=== PATIENT | male | born 1975 | race Caucasian/White ===

== ENCOUNTER 2021-07-01 10:15 | Emergency (ER) | payer OTHER, SELFPAY ==
--- NOTE | 2021-07-01 10:28 | W.ED.HA ---
Documented by User: ROOSEVELT Epstein 07/01/21 11:27 HPI - Headache General: Chief Complaint: Headache Stated Complaint: Migraine Time Seen by Provider: 07/01/21 10:16 Source: patient Mode of arrival: ambulatory Limitations: no limitations History of Present Illness: Patient is a nice 45-year-old male who presents to ED today with a complaint of a migraine headache. Patient states he has suffered from migraine headaches for decades. He states he will normally get a headache once every 1 to 2 months and normally can be aborted with OTC medications however this time they have been unsuccessful. He states his headache today is identical to previous migraine headaches only worse in severity. Pain is located right retro-orbital. He is having a little nausea but no episodes of emesis which again is common with his migraines. Reports sensitivity to light/sound. He does not take any prescription abortive or prophylactic medications at home. No recent injury/trauma. Currently rating pain at a 7-8/10. Associated symptoms: Reports nausea; Deny chest pain, confusion, fever(s), lightheadedness, malaise, pre-syncope, rash, syncope or vomiting Review of Systems Const: Denies: fever(s), chills, body aches, fatigue or malaise Eyes: Reports: photophobia; Denies: change in vision, blind spots, eye discomfort, eye discharge, eye redness, floaters or seeing flashes ENMT: Denies: throat pain, odynophagia, ear or mastoid pain, nasal discharge or nasal congestion Card: Denies: chest pain, palpitations, lightheadedness, syncope or pre-syncope Resp: Denies: dyspnea GI: Reports: nausea; Denies: abdominal pain, vomiting, diarrhea or change in bowel habits Musc: Denies: neck pain, extremity pain or joint pain Skin/Breast: Denies: rash Neuro: Reports: headache(s); Denies: numbness in extremities, weakness in extremities, sensory changes, lack of coordination, difficulty walking, dizziness, vertigo, confusion or Slurred speech present FOR[facility]LY [facility] ED PFSH: Medical History (Updated 07/07/21 @ 21:43 by John Nixon MD) Migraine Physical Exam Const: COMMON NORMALS: no acute distress, average body habitus, patient oriented x3, no limitations, healthy appearing, alert and well nourished GENERAL APPEARANCE: cooperative ORIENTATION/CONSCIOUSNESS: Yes awake, Yes oriented to person, Yes oriented to place and Yes oriented to time HENMT: COMMON NORMALS: normocephalic and atraumatic HEAD & SCALP: normal to inspection, normocephalic and atraumatic FACE & SINUS: normal facial exam Eye: GENERAL EYE: appearance normal, both eyes and all related structures Neck/C-Spine: COMMON NORMALS: full ROM, no lymphadenopathy and no meningeal signs Resp: COMMON NORMALS: normal respiratory effort Cardio: COMMON NORMALS: regular rate and regular rhythm RATE: regular rate RHYTHM: regular rhythm Neuro: MAYO COMA SCALE: document GCS findings Mayo coma scale eye opening: Spontaneous Mayo coma scale verbal response: Orientated Eagle coma scale motor response: Obey commands Eagle coma scale total score: 15 COMMON NORMALS: patient oriented x3, CN's II-XII intact bilaterally, moves all extremities, no focal motor deficits, no sensory deficits noted and gait normal SENSORIUM/ORIENTATION: Yes alert, Yes oriented to person, Yes oriented to place and Yes oriented to time MENINGEAL SIGNS: Yes no meningeal signs Skin: COMMON NORMALS: no rashes or lesions noted GENERAL SKIN EXAM: no rashes or lesions noted Course Vital Signs: Vital signs: Vital Signs Temperature 97.2 F L 07/01/21 10:30 Pulse Rate 63 07/01/21 11:35 Respiratory Rate 16 07/01/21 11:35 Blood Pressure 120/81 07/01/21 11:35 Pulse Oximetry 100 07/01/21 11:35 MDM - Headache Medical Decision Making Upon re-examination patient is resting comfortably in a quiet dark room. He is currently rating his pain at a 3/10. Patient is stable for discharge at this time. Recommend follow-up with PCP if headaches become more frequent or continue to progress in severity. Return to ED precautions verbally given to patient. Discharge Plan Discharge Patient Disposition: Home Clinical Impression: Migraine Qualifiers: Migraine type: unspecified Status migrainosus presence: without status migrainosus Intractability: not intractable Qualified Code(s): G43.909 - Migraine, unspecified, not intractable, without status migrainosus Condition: Stable Discharge Orders: Discharge ED (Routine); Ordered 07/01/21 Ordered By: Jeni Jay Referrals: Boo Prince DO [Primary Care Provider] - Patient Instructions: Headache - Migraine (Adult), Migraine Headache (ED) Coding Level of Care Code ED Trimmer Tailer for Chg Fwd Exam Comprehensive Documented by User: John Nixon MD 07/07/21 21:43 HPI - Headache General: Chief Complaint: Headache Stated Complaint: Migraine Time Seen by Provider: 07/01/21 10:16 PFSH ED PFSH: Medical History (Updated 07/07/21 @ 21:43 by John Nixon MD) Migraine Physical Exam Neuro: MAYO COMA SCALE: document GCS findings Mayo coma scale total score: 15 Course Vital Signs: Vital signs: Vital Signs Temperature 97.2 F L 07/01/21 10:30 Pulse Rate 63 07/01/21 11:35 Respiratory Rate 16 07/01/21 11:35 Blood Pressure 120/81 07/01/21 11:35 Pulse Oximetry 100 07/01/21 11:35 MDM - Headache Medical Decision Making Upon re-examination patient is resting comfortably in a quiet dark room. He is currently rating his pain at a 3/10. Patient is stable for discharge at this time. Recommend follow-up with PCP if headaches become more frequent or continue to progress in severity. Return to ED precautions verbally given to patient. I have reviewed this documentation by ROOSEVELT Epstein. John Nixon MD Emergency Medicine Discharge Plan Discharge Patient Disposition: Home Clinical Impression: Migraine Qualifiers: Migraine type: unspecified Status migrainosus presence: without status migrainosus Intractability: not intractable Qualified Code(s): G43.909 - Migraine, unspecified, not intractable, without status migrainosus Condition: Stable Discharge Orders: Discharge ED (Routine); Ordered 07/01/21 Ordered By: Jeni Jay Referrals: Boo Prince DO [Primary Care Provider] - Patient Instructions: Headache - Migraine (Adult), Migraine Headache (ED) Coding Level of Care Code ED Trimmer Tailer for Chg Fwd Exam Comprehensive
[2021-07-01 10:30] VITALS: BP 146/106; PULSE 64; RESP 16; TEMP 36.2; O2SAT 100; BMI 24.3
[2021-07-01] MEDS: diphenhydrAMINE 50 mg/mL SDV 1mL IVP (10:35)
[2021-07-01] MEDS: ketorolac 60 mg/2 mL INJ 30 MG IVP (10:35)
[2021-07-01] MEDS: sodium chloride 0.9% 1,000 ML 999 ML IV (10:36)
[2021-07-01] MEDS: ondansetron 2 mg/ML SDV 2 mL 4 MG IVP (10:36)
[2021-07-01 10:42] VITALS: BP 146/106; PULSE 70; RESP 16; O2SAT 99
[2021-07-01] MEDS: dexamethasone 4 mg/mL INJ 6 MG IVP (11:30)
[2021-07-01 11:35] VITALS: BP 120/81; PULSE 63; RESP 16; O2SAT 100
== END 2021-07-01 11:38 | disposition home or self-care (01) ==
PROVIDERS: Emergency Provider Physician Assistant; PCP Family Medicine
DX: G43.909 Migraine, unspecified, not intractable, without status migrainosus (principal)
CPT/HCPCS: 96361; 96374; 96375; 99284; J1100; J1200; J1885; J2405; J7030

== ENCOUNTER 2021-08-05 04:10 | Emergency (ER) | payer OTHER, SELFPAY ==
[2021-08-05 04:15] VITALS: BP 139/86; PULSE 71; TEMP 36.6; O2SAT 997
[2021-08-05 04:18] VITALS: BP 139/86; PULSE 71; RESP 14; TEMP 36.6; O2SAT 97; BMI 24.3
--- NOTE | 2021-08-05 04:25 | XRR_ITS ---
PROCEDURE INFORMATION: Exam: XR Chest Exam date and time: 08/05/2021 4:38 AM Age: 45 years old Clinical indication: Cough TECHNIQUE: Imaging protocol: XR of the chest. Views: 2 views. COMPARISON: CR Chest 1 [place] [id number] 04/22/2017 4:35 PM FINDINGS: Lungs: There is no evidence of focal pulmonary consolidation. Pleural spaces: No pleural effusion or pneumothorax. Heart/Mediastinum: Normal in size. Bones/joints: No acute fracture is identified. XR/XR chest 2V* [id number] IMPRESSION: No acute findings.
--- NOTE | 2021-08-05 04:26 | ED_ITS ---
HPI - URI/Sore Throat General: Chief Complaint: Upper Respiratory Infection Stated Complaint: n/vision problems Time Seen by Provider: 08/05/21 04:14 Source: patient Mode of arrival: ambulatory Limitations: no limitations History of Present Illness: 45-year-old male states over the last 3 weeks he states he has been having a cough nasal congestion and feeling very congested in his head. He has been having some mild headaches with some sinus pain. He states that he cannot get rid of the head congestion and affecting his work. He denies any fever he states he been taken NyQuil with no improvement. States the cough has been dry in nature he states he had some blurred vision here his vision is normal has normal visual acuity. Associated symptoms: Reports nasal congestion; Deny abdominal pain, chest pain, diarrhea, headache(s), nausea or vomiting Review of Systems Const: Reports: body aches Eyes: Denies: blurry vision or eye discomfort ENMT: Reports: nasal congestion Card: Denies: chest pain Resp: Reports: non-productive cough GI: Denies: abdominal pain, nausea, vomiting or diarrhea : Denies: dysuria Musc: Denies: neck pain or back pain Skin/Breast: Denies: rash Neuro: Denies: headache(s) Psych: Denies: depression Cruz/Lymph: Denies: easy bruising All/Imm: Denies: urticaria PFSH ED PFSH: Medical History Migraine Social History (Updated 08/05/21 @ 04:28 by Cecile Baker MD) Substance/Drug Use: never Physical Exam Const: COMMON NORMALS: no acute distress, patient oriented x3 and healthy appearing HENMT: COMMON NORMALS: normocephalic and atraumatic HEAD & SCALP: normocephalic and atraumatic Eye: COMMON NORMALS: Equal, round and reactive pupils present and EOMs intact bilaterally VISUAL ACUITY: Yes acuity normal VISUAL TOVAR: No peripheral vision loss PUPIL: Yes Equal, round and reactive pupils present Neck/C-Spine: COMMON NORMALS: full ROM and supple Chest: COMMONS NORMALS: normal inspection of the chest and normal palpation of entire chest wall Resp: COMMON NORMALS: normal respiratory effort, No retractions, No use of accessory muscles and clear to auscultation bilaterally AUSCULTATION: clear to auscultation bilaterally Cardio: COMMON NORMALS: regular rate, regular rhythm and No murmurs present (Cardio) RATE: regular rate RHYTHM: regular rhythm GI: COMMON NORMALS: Normal to inspection, nondistended, normoactive bowel sounds present, Soft to palpation, non-tender and no masses PALPATION: Yes Soft to palpation Extremity: COMMON NORMALS: normal to inspection and full ROM Neuro: COMMON NORMALS: patient oriented x3, moves all extremities and no focal motor deficits CRANIAL NERVES: Yes CN normal except as noted SPEECH: speech normal MOTOR EXAM: 5/5 motor strength present throughout Psych: COMMON NORMALS: mental status grossly normal, Normal thought process present and cooperative THOUGHT PROCESS: Normal thought process present Skin: COMMON NORMALS: no rashes or lesions noted and no wounds GENERAL SKIN EXAM: no rashes or lesions noted Course Vital Signs: Vital signs: Vital Signs Temperature 97.8 F 08/05/21 04:18 Pulse Rate 71 08/05/21 04:18 Respiratory Rate 14 08/05/21 04:18 Blood Pressure 139/86 08/05/21 04:18 Pulse Oximetry 97 08/05/21 04:18 MDM - URI/Sore Throat Medical Decision Making Patient presents with cough congestion likely upper respiratory infection he has had it for 3 weeks we will give him a dose of steroids prescribed Keflex he is stable for discharge he is to follow-up with PCP and return if worsening he understands agrees to plan. Discharge Plan Discharge Patient Disposition: Home Clinical Impression: Upper respiratory infection Prescriptions: New cephalexin 500 mg capsule 500 mg PO TID 7 Days Qty: 21 0RF Discharge Orders: Discharge ED (Routine); Ordered 08/05/21 Ordered By: Cecile Baker Referrals: Boo Prince DO [Primary Care Provider] - 1-3 days Discharge Diet: Advance as tolerated Discharge Activity: Resume usual activity Patient Instructions: Upper Respiratory Infection (ED) Stand Alone Forms: Work/School Release Coding Level of Care Code ED Conveyor Feeder Offbearer for Chg Fwd Exam Comprehensive
[2021-08-05] MEDS: dexamethasone 10 mg/mL INJ IM (04:52)
== END 2021-08-05 04:51 | disposition home or self-care (01) ==
PROVIDERS: Emergency Provider Emergency Medicine; PCP Family Medicine
DX: J06.9 Acute upper respiratory infection, unspecified (principal)
CPT/HCPCS: 71046; 96372; 99283; J1100

== ENCOUNTER → 2021-09-04 14:41 | Outpatient (BNVA) | payer OTHER, SELFPAY | PROVIDERS: PCP Family Medicine; Visit Provider Family Medicine | DX: G43.909 Migraine, unspecified, not intractable, without status migrainosus (principal); E34.9 Endocrine disorder, unspecified; E03.9 Hypothyroidism, unspecified; E05.90 Thyrotoxicosis, unspecified without thyrotoxic crisis or storm | CPT/HCPCS: 84443 ==

== ENCOUNTER → 2022-03-24 12:52 | Outpatient (BNVA) | payer OTHER, SELFPAY | PROVIDERS: PCP Family Medicine; Visit Provider Family Medicine | DX: E29.1 Testicular hypofunction (principal); E03.9 Hypothyroidism, unspecified; F32.A Depression, unspecified; Z13.6 Encounter for screening for cardiovascular disorders | CPT/HCPCS: 80053; 80061; 82040; 84270; 84403; 84443; 85025 ==

== ENCOUNTER → 2022-08-07 08:34 | Outpatient (BNVA) | payer OTHER, SELFPAY | PROVIDERS: PCP Family Medicine; Visit Provider Family Medicine | DX: E03.9 Hypothyroidism, unspecified (principal); E29.1 Testicular hypofunction | CPT/HCPCS: 80053; 82040; 84270; 84403; 84439; 84443 ==

== ENCOUNTER → 2022-12-11 15:25 | Outpatient (BNVA) | payer OTHER, SELFPAY | PROVIDERS: PCP Family Medicine; Visit Provider Family Medicine | DX: E03.9 Hypothyroidism, unspecified (principal) | CPT/HCPCS: 80053; 84403; 84439; 84443; 85025 ==

== ENCOUNTER → 2023-04-06 12:02 | Outpatient (BNVA) | payer OTHER, SELFPAY | PROVIDERS: PCP Family Medicine; Visit Provider Family Medicine | DX: E03.9 Hypothyroidism, unspecified (principal); E29.1 Testicular hypofunction | CPT/HCPCS: 80053; 84403; 84439; 84443 ==

== ENCOUNTER → 2023-10-01 14:34 | Outpatient (BNVA) | payer OTHER, SELFPAY | PROVIDERS: PCP Family Medicine; Visit Provider Family Medicine | DX: E03.9 Hypothyroidism, unspecified (principal); E29.1 Testicular hypofunction | CPT/HCPCS: 80053; 84403; 84439; 84443 ==

== ENCOUNTER → 2023-12-24 15:20 | Outpatient (BNVA) | payer OTHER, SELFPAY | PROVIDERS: PCP Family Medicine; Visit Provider Family Medicine | DX: E03.9 Hypothyroidism, unspecified (principal) | CPT/HCPCS: 84443 ==

== ENCOUNTER → 2023-12-30 15:10 | Outpatient (BNVA) | payer OTHER, SELFPAY | PROVIDERS: PCP Family Medicine; Visit Provider Family Medicine | DX: E03.9 Hypothyroidism, unspecified (principal) | CPT/HCPCS: 84443 ==

== ENCOUNTER → 2024-01-20 15:24 | Outpatient (BNVA) | payer OTHER, SELFPAY | PROVIDERS: PCP Family Medicine; Visit Provider Family Medicine | DX: E03.9 Hypothyroidism, unspecified (principal) | CPT/HCPCS: 84443; 84480 ==

== ENCOUNTER 2024-04-03 06:12 | Observation (INO) | payer OTHER, SELFPAY ==
[2024-04-03] VITALS (10 sets, daily range): BP systolic 100–141; BP diastolic 67–88; PULSE 49–81; RESP 15–18; TEMP 36.4–36.7; O2SAT 96–100; BMI 25.8
--- NOTE | 2024-04-03 06:27 | XRR_ITS ---
PROCEDURE INFORMATION: Exam: XR Chest Exam date and time: 04/03/2024 6:39 AM Age: 48 years old Clinical indication: Other: Epigastric pain; Additional info: Abd pain TECHNIQUE: Imaging protocol: Radiologic exam of the chest. Views: 1 view. COMPARISON: CR XR chest 2V* [id number] 08/05/2021 4:38 AM FINDINGS: Lungs: Unremarkable. No consolidation. Pleural spaces: Unremarkable. No pleural effusion. No pneumothorax. Heart/Mediastinum: Unremarkable. No cardiomegaly. Bones/joints: Unremarkable. XR/XR chest 1V portable [id number] IMPRESSION: No acute findings.
--- NOTE | 2024-04-03 06:47 | ED_ITS ---
HPI - Abdominal Pain 2 General: Chief Complaint: Abdominal Pain Stated Complaint: abd pain Time Seen by Provider: 04/03/24 06:26 History of Present Illness: 48-year-old male presents to the emergen cy room with complaints of epigastric pain began around 3 AM this morning. He has had this off and on for the last month. Does not notice anything that precipitates or relieves it. He has not noticed any association with eating or not eating or eating a particular food. No dysuria urgency or frequency. He has not had any dark tarry stools or hematochezia. No associated vomiting. Localizes the pain mostly to the epigastric area at times it will go into the right upper quadrant and he describes as being under his ribs. No previous abdominal surgeries no fevers. This particular episode is more intense than what he had in the past. Drinks alcohol occasionally has not had any in the last week. Associated Symptoms: Denies chills, coffee ground emesis, dysuria, fever(s), hematochezia, hematemesis, melena, nausea and vomiting Related Data Home Medications Medication Instructions Recorded Confirmed buspirone 15 mg tablet 15 mg PO TID 08/07/22 04/03/24 clonazepam 0.5 mg tablet 0.5 mg PO TID 08/07/22 04/03/24 escitalopram oxalate 20 mg tablet 20 mg PO DAILY 04/03/24 04/03/24 lurasidone 80 mg tablet 80 mg PO QPM 04/03/24 04/03/24 testosterone cypionate 200 mg/mL 0.375 mg SUBCUT Q14D 04/03/24 04/03/24 intramuscular oil Previous Rx's Medication Instructions Recorded syringe with needle 3 mL 23 x 1 #100 ea 01/14/23 (BD Luer-Vadim Syringe) albuterol sulfate 90 mcg/actuation 2 inh inhalation Q6H PRN shortness 04/25/23 aerosol inhaler of breath or wheezing #6.7 grams levothyroxine 125 mcg tablet 125 mcg PO DAILY #60 tabs 02/01/24 Allergies Allergy/AdvReac Type Severity Reaction Status Date / Time No Known Allergies Allergy Verified 04/03/24 06:31 Review of Systems 2 Const: Denies: fever(s) or chills Card: Denies: chest pain Resp: Denies: dyspnea GI: Reports: abdominal pain; Denies: nausea, vomiting, hematemesis, coffee ground emesis, hematochezia or melena : Denies: dysuria, urinary frequency or urinary urgency Musc: Denies: neck pain or back pain Skin/Breast: Denies: rash PFSH ED 2 PFSH: Medical History Generalized anxiety disorder Moderate major depression Anxiety Testosterone deficiency in male Hypothyroidism Migraine Surgical History History of thyroidectomy, total History of sinus surgery Family History Grandmother Cancer Paternal-colon Grandfather Cancer Paternal-colon Other Dementia Diabetes Hypertension Lung disease Psychiatric illness Denies family history of CAD (coronary artery disease) Clotting disorder Hyperlipidemia Chronic kidney disease (CKD) Anesthesia complication Bleeding disorder Stroke Social History Smoking and tobacco/nicotine status: never used tobacco/nicotine Alcohol intake: current Alcohol intake frequency: few times a month Substance/Drug Use: never Lives independently: Yes Marital status: Number of children: 2 Current occupational status: employed 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 [employer] Special dianna needs: No Agree to transfusion: Yes Physical Exam 2 Const: GENERAL APPEARANCE: cooperative ORIENTATION/CONSCIOUSNESS: Yes awake, Yes oriented to person, Yes oriented to place and Yes oriented to time HENMT: COMMON NORMALS: normocephalic, atraumatic and hearing grossly normal bilaterally HEAD & SCALP: normocephalic and atraumatic Resp: COMMON NORMALS: normal respiratory effort, No retractions, No use of accessory muscles and clear to auscultation bilaterally AUSCULTATION: clear to auscultation bilaterally Cardio: COMMON NORMALS: regular rate, regular rhythm and No murmurs present (Cardio) RATE: regular rate RHYTHM: regular rhythm GI: COMMON NORMALS: No hepatosplenomegaly present AUSCULTATION: Yes normoactive bowel sounds PALPATION: Yes Tenderness to palpation present (GI) (Epigastrium), No Guarding due to palpation present (GI) and Yes No hepatosplenomegaly present Extremity: COMMON NORMALS: normal to inspection, capillary refill normal, no clubbing, cyanosis or edema, no calf tenderness and no pedal edema Neuro: SENSORIUM/ORIENTATION: Yes oriented to person, Yes oriented to place and Yes oriented to time Skin: COMMON NORMALS: no rashes or lesions noted GENERAL SKIN EXAM: no rashes or lesions noted Course 2 Vital Signs: Vital signs: Vital Signs Temperature 97.9 F 04/03/24 06:27 Pulse Rate 58 L 04/03/24 11:30 Respiratory Rate 16 04/03/24 06:27 Blood Pressure 111/68 04/03/24 11:30 Pulse Oximetry 98 04/03/24 11:30 Oxygen Delivery Me thod Room Air 04/03/24 08:00 MDM - Abdominal Pain Medical Decision Making History and exam patient is having biliary colic imaging confirmed acute Ness cystitis. No dilation of the common bile duct white count elevated alk phos elevated is transaminases and bilirubin are normal lipase normal. Hang Mathew discussed Dr. Kearns will admit for acute cholecystitis. Medical Records I reviewed the patient's medical records. Lab Data I reviewed the patient's lab results. 04/03/24 06:40 04/03/24 06:40 Labs/Radiology: Radiology Impressions Chest X-Ray 04/03/24 06:27 IMPRESSION: No acute findings. Gallbladder Ultrasound 04/03/24 07:44 IMPRESSION: 1. Findings of acute cholecystitis. 2. There are several stones within the gallbladder and some of the stones are entrapped in the gallbladder neck. Recommend surgical evaluation. If there are entrapped stones at the gallbladder neck patient is at risk for developing fistulous communication with the duodenum. 3. No intrahepatic ductal bile duct dilatation. Laboratory Results WBC 11.60 10^3/uL (3.29-11.43) H 04/03/24 06:40 RBC 5.09 10^6/uL (3.85-5.65) 04/03/24 06:40 Hgb 15.10 g/dL (11.27-16.99) 04/03/24 06:40 Hct 45.7 % (37-53) 04/03/24 06:40 MCV 89.8 fl (82-101) 04/03/24 06:40 MCH 29.7 pg (27-33) 04/03/24 06:40 MCHC 33.0 g/dL (30-55) 04/03/24 06:40 RDW 13.3 % (12.1-15.1) 04/03/24 06:40 Plt Count 473 10^3/cmm (157-399) H 04/03/24 06:40 MPV 9.0 fL (7.4-10.4) 04/03/24 06:40 Neut % (Auto) 51.4 % 04/03/24 06:40 Lymph % (Auto) 38.9 % 04/03/24 06:40 Lea % (Auto) 6.5 % 04/03/24 06:40 Eos % (Auto) 2.1 % 04/03/24 06:40 Baso % (Auto) 0.8 % 04/03/24 06:40 Neut # (Auto) 5.98 10^3/uL (1.8-7.7) 04/03/24 06:40 Lymph # (Auto) 4.5 10^3/uL (0.8-4.8) 04/03/24 06:40 Lea # (Auto) 0.8 10^3/uL (0.2-0.9) 04/03/24 06:40 Eos # (Auto) 0.2 10^3/uL (0.0-0.8) 04/03/24 06:40 Baso # (Auto) 0.1 10^3/uL (0.0-0.1) 04/03/24 06:40 Nucleated RBC % (auto) 0 % 04/03/24 06:40 Nucleated RBCs # 0.0 /100WBC 04/03/24 06:40 Sodium 139 mmol/L (136-145) 04/03/24 06:40 Potassium 3.7 mmol/L (3.5-5.1) 04/03/24 06:40 Chloride 100 mmol/L (98-107) 04/03/24 06:40 Carbon Dioxide 27 mmol/L (22-29) 04/03/24 06:40 Anion Gap 15.7 (5-19) 04/03/24 06:40 BUN 9 mg/dL (6-20) 04/03/24 06:40 Creatinine 1.1 mg/dL (0.7-1.2) 04/03/24 06:40 GFR Calculation 72.1 mL/min (90-130) L 04/03/24 06:40 Glucose 116 mg/dL (65-115) H 04/03/24 06:40 Calculated Osmolality 288 mOsm/kg (285-295) 04/03/24 06:40 Calcium 9.6 mg/dL (8.5-10.5) 04/03/24 06:40 Total Bilirubin 0.2 mg/dL (0.15-1.2) 04/03/24 06:40 AST 19 U/L (0-40) 04/03/24 06:40 ALT 35 U/L (0-41) 04/03/24 06:40 Alkaline Phosphatase 139 U/L (40-130) H 04/03/24 06:40 Total Protein 7.9 g/dL (6.6-8.7) 04/03/24 06:40 Albumin 4.7 g/dL (3.5-5.2) 04/03/24 06:40 Globulin 3.2 g/dL (1.3-4.6) 04/03/24 06:40 Lipase 54 U/L (13-60) 04/03/24 06:40 Urine Color Yellow (Yellow) 04/03/24 09:15 Urine Appearance Clear (CLEAR) 04/03/24 09:15 Urine pH 6.5 (5-7) 04/03/24 09:15 Ur Specific Isabel 1.012 (1.005-1.030) 04/03/24 09:15 Urine Protein Negative (Negative) 04/03/24 09:15 Urine Glucose (UA) Negative (Normal) 04/03/24 09:15 Urine Ketones Negative (Negative) 04/03/24 09:15 Urine Blood Negative (Negative) 04/03/24 09:15 Urine Nitrate Negative (Negative) 04/03/24 09:15 Urine Bilirubin Negative (Negative) 04/03/24 09:15 Urine Urobilinogen 1.0 mg/dL (Negative) 04/03/24 09:15 Ur Leukocyte Esterase Negative (Negative) 04/03/24 09:15 Urine RBC 0-2 /hpf (0-2) 04/03/24 09:15 Urine WBC 0-5 /hpf (0-5) 04/03/24 09:15 Ur Squamous Epith Cells 0-5 /hpf (0-5) 04/03/24 09:15 Amorphous Sediment Not Reportable 04/03/24 09:15 Urine Bacteria None seen /hpf (NONE) 04/03/24 09:15 Hyaline Casts 0-4 /lpf H 04/03/24 09:15 All radiology interpretation(s) finalized by discharge Discharge Plan Discharge Condition: Stable Prescriptions: No Action albuterol sulfate 90 mcg/actuation HFA aerosol inhaler 2 inh inhalation Q6H PRN (Reason: shortness of breath or wheezing) Qty: 6.7 0RF clonazepam 0.5 mg tablet 0.5 mg PO TID buspirone 15 mg tablet 15 mg PO TID (DME) BD Luer-Vadim Syringe 3 mL 23 x 1 syringe See Rx Instructions .ROUTE .COMPLEX Qty: 100 0RF Dose Instruction: USE DIRECTED FOR TESTOSTERONE INJECTION Rx Instructions: USE DIRECTED FOR TESTOSTERONE INJECTION levothyroxine 125 mcg tablet 125 mcg PO DAILY Qty: 60 1RF testosterone cypionate 200 mg/mL oil 0.375 mg SUBCUT Q14D escitalopram oxalate 20 mg tablet 20 mg PO DAILY lurasidone 80 mg tablet 80 mg PO QPM Referrals: Taz Williamson MD [Primary Care Provider] - Coding Level of Care Code ED Automatic Corn Grinder Operator for Alysong Melissa
[2024-04-03 07:02] LABS: Basophils # 0.1 10^3/uL (0.0-0.1); Basophils % 0.8 %; Eosinophils # 0.2 10^3/uL (0.0-0.8); Eosinophils % 2.1 %; Hematocrit 45.7 % (37-53); Lymphocytes # 4.5 10^3/uL (0.8-4.8); Lymphocytes % 38.9 %; Mean Corpuscular Hemoglobin 29.7 pg (27-33); Mean Corpuscular Volume 89.8 fl (82-101); Monocytes # 0.8 10^3/uL (0.2-0.9); Monocytes % 6.5 %; Neutrophils # 5.98 10^3/uL (1.8-7.7); Neutrophils % 51.4 %; Nucleated Red Blood Cells % 0 %; Platelet Count 473 10^3/cmm (157-399); Red Blood Count 5.09 10^6/uL (3.85-5.65); Red Cell Distribution Width 13.3 % (12.1-15.1)
[2024-04-03] MEDS: lidocaine 2% viscous 15 ML, aluminum-mag hydrox-simethicon 30 ML, sucralfate oral liq 1 GM PO (07:06)
--- NOTE | 2024-04-03 07:14 | ECG_ITS ---
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 Measurements Intervals [place] Rate: 50 P: 60 AR: 171 QRS: 59 QRSD: 85 T: 48 QT: 430 QTc: 392 Interpretive Statements SINUS BRADYCARDIA No previous ECG available for comparison Electronically Signed On 04-03-2024 20:05:40 ENGINEERING CLERK by Benjamin Toth M.D. [email or web address]
[2024-04-03 07:15] LABS: Alanine Aminotransferase 35 U/L (0-41); Albumin Level 4.7 g/dL (3.5-5.2); Alkaline Phosphatase 139 U/L (40-130); Anion Gap 15.7 (5-19); Aspartate Amino Transferase 19 U/L (0-40); Blood Urea Nitrogen 9 mg/dL (6-20); Calcium 9.6 mg/dL (8.5-10.5); Carbon Dioxide 27 mmol/L (22-29); Chloride 100 mmol/L (98-107); Creatinine Clr Calc Pharmacy 79.8881; Globulin 3.2 g/dL (1.3-4.6); Glomerular Filtration Rate 72.1 mL/min (90-130); Glucose 116 mg/dL (65-115); Lipase 54 U/L (13-60); Osmolality Calculated 288 mOsm/kg (285-295); Potassium 3.7 mmol/L (3.5-5.1); Sodium 139 mmol/L (136-145); Total Bilirubin 0.2 mg/dL (0.15-1.2); Total Protein 7.9 g/dL (6.6-8.7)
--- NOTE | 2024-04-03 07:44 | US_ITS ---
WS: [id number] RIGHT UPPER QUADRANT ULTRASOUND HISTORY: abd pain COMPARISON: CT 02/26/2014 Liver: 13.4 cm in length. Normal size liver and echogenicity. No bile duct dilatation or mass. Portal Vein: Normal hepatopetal flow with monophasic waveform. Gallbladder: Abnormal gallbladder. Mildly hydropic gallbladder with stones and sludge. Mild wall thic kening with a small amount of pericholecystic fluid. There are several stones near the gallbladder ne ck. Several of the stones. Be entrapped at the gallbladder neck. CBD: 0.4 cm Pancreas: Normal size and echogenicity. Right kidney: 9.2 cm in length. Normal size and echogenicity. No hydronephrosis or mass. Aorta and IVC: Unremarkable abdominal aorta and IVC. No ascites. US/US gall bladder [id number] IMPRESSION: 1. Findings of acute cholecystitis. 2. There are several stones within the gallbladder and some of the stones are entrapped in the gallbladder neck. Recommend surgical evaluation. If there are entrapped stones at the gallbladder neck patient is at risk for developing fist ulous communication with the duodenum. 3. No intrahepatic ductal bile duct dilatation.
[2024-04-03 09:28] LABS: Bacteria Urine None Seen /hpf; Hyaline Casts Urine 0-4 /lpf; RBC Urine 0-2 /hpf (0-2); Squamous Epithelial Cell Urine 0-5 /hpf (0-5); WBC Urine 0-5 /hpf (0-5)
[2024-04-03 09:32] LABS: Add Urine Microscopic? YES; Bilirubin Urine Negative (Negative); Blood Urine Negative (Negative); Glucose Urine UA Negative (Normal); Ketones Urine Negative (Negative); Leukocyte Esterase Urine Negative (Negative); Nitrate Urine Negative (Negative); Protein Urine Negative (Negative); Specific Gravity, Urine 1.012 (1.005-1.030); Urine Appearance Clear (CLEAR); Urine Color Yellow (Yellow); pH Urine 6.5 (5-7)
[2024-04-03] MEDS: piperacillin-tazobactam 3.375 GM in sodium chloride 0.9% (plus) 50 ML IV ×2 (11:00→21:06)
--- NOTE | 2024-04-03 13:36 | PC.NURSE ---
This nurse took report from DEEPAK Farias in ER at [id number].
--- NOTE | 2024-04-03 16:04 | P.HP_ITS ---
Providers/Chief Complaint 2 Admitting Physician: Lamont Kearns DO Primary Care Provider: Taz Williamson MD Chief Complaint: abd pain History of Present Illness Mariya Jacobs is a 48 year old male to the hospital as a 2-month history of right upper quadrant pain and nausea. The pain is sharp and radiates to his back. Eating makes the pain worse. Nothing seems to make the pain better. He denies any hematochezia and/or melena. An ultrasound of the gallbladder shows acute calculous cholecystitis Review of Systems 2 General: Reports: 10 or more systems reviewed and unremarkable except in HPI and below Medications/Allergies Home Medications Medication Instructions Recorded Confirmed Last Taken Type buspirone 15 mg tablet 15 mg PO TID 08/07/22 04/03/24 Unknown History clonazepam 0.5 mg tablet 0.5 mg PO TID 08/07/22 04/03/24 Unknown History syringe with needle 3 mL 23 x 1 #100 ea 01/14/23 04/03/24 Unknown Rx (BD Luer-Vadim Syringe) albuterol sulfate 90 mcg/actuation 2 inh inhalation Q6H PRN shortness 04/25/23 04/03/24 Unknown Rx aerosol inhaler of breath or wheezing #6.7 grams levothyroxine 125 mcg tablet 125 mcg PO DAILY #60 tabs 02/01/24 04/03/24 Unknown Rx escitalopram oxalate 20 mg tablet 20 mg PO DAILY 04/03/24 04/03/24 Unknown History lurasidone 80 mg tablet 80 mg PO QPM 04/03/24 04/03/24 Unknown History testosterone cypionate 200 mg/mL 0.375 mg SUBCUT Q14D 04/03/24 04/03/24 Unknown History intramuscular oil Allergies Allergy/AdvReac Type Severity Reaction Status Date / Time No Known Allergies Allergy Verified 04/03/24 06:31 PFSH Acute 2 PFSH: Medical History Generalized anxiety disorder Moderate major depression Anxiety Testosterone deficiency in male Hypothyroidism Migraine Surgical History History of thyroidectomy, total History of sinus surgery Family History Grandmother Cancer Paternal-colon Grandfather Cancer Paternal-colon Other Dementia Diabetes Hypertension Lung disease Psychiatric illness Denies family history of CAD (coronary artery disease) Clotting disorder Hyperlipidemia Chronic kidney disease (CKD) Anesthesia complication Bleeding disorder Stroke Social History Smoking and tobacco/nicotine status: never used tobacco/nicotine Alcohol intake: current Alcohol intake frequency: few times a month Substance/Drug Use: never Lives independently: Yes Marital status: Number of children: 2 Current occupational status: employed 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 Ears : Pinnae and external canal are normal. Hearing is normal. Eyes : PERRLA, Sclera and injection are normal. No conjunctival discharge. Nose : Mucous membranes are without erythema. Throat : buccal mucosa is normal, gums are without significant recession or hypertrophy. Lungs : Equal chest rise bilaterally, no use of accessory muscles, trachea is midline. Cor : Rate and rhythm are normal. Abdomen : Soft, ND, right upper quadrant tenderness, negative Schmidt's, no g/r/m Extremities : No edema, no cyanosis or clubbing, dorsalis pedis pulses are present bilaterally, non-tender to palpation of calves. Upper extremities are normal bilaterally. Back : non-tender to palpation, no CVA tenderness. Neuro : CN II - XII intact, Upper and lower extremities have equal and full strength Data 04/03/24 06:40 04/03/24 06:40 A&P Assessment and plan (1) Acute calculous cholecystitis: Plan Laparoscopic cholecystectomy The risks and benefits of the procedure, including but not limited to, bleeding, infection, scar, numbness, pain, damage to surrounding structures, damage to common bile duct requiring additional surgery, conversion to an open procedure, were explained to the patient. He is understanding of the risks and wishes to proceed. See orders Attestations 2 Medical Necessity Statement*: Patient require at least 1 night in the hospital for IV antibiotics and preparation for cholecystectomy tomorrow Coding Level of Care Code 06155 Diagnoses Acute calculous cholecystitis K80.00
[2024-04-04] VITALS (11 sets, daily range): BP systolic 99–149; BP diastolic 47–88; PULSE 63–100; RESP 12–24; TEMP 36.2–36.6; O2SAT 95–100
[2024-04-04] MEDS: piperacillin-tazobactam 3.375 GM in sodium chloride 0.9% (plus) 50 ML IV ×2 (04:46→11:18)
[2024-04-04] MEDS: sodium chloride 0.9% 1,000 ML 30 ML IV (09:14)
--- NOTE | 2024-04-04 10:04 | P.PN_ITS ---
Vitals/I&O/Wt Last Vital Signs Temp 97.2 F L 04/04/24 08:59 Pulse 68 04/04/24 08:59 Resp 17 04/04/24 08:59 BP 122/74 04/04/24 08:59 Pulse Ox 100 04/04/24 08:59 O2 Del Method Room Air 04/04/24 08:59 04/03/24 04/04/24 04/04/24 22:59 06:59 14:59 Intake Total 720 / 770 50 / 820 Balance 720 / 770 50 / 820 Weight last 48 hrs Weight 156 lb Weight 160 lb Weight 160 lb Data 04/03/24 06:40 04/03/24 06:40 A&P Assessment and plan (1) Acute calculous cholecystitis: Plan Laparoscopic cholecystectomy The risks and benefits of the procedure, including but not limited to, bleeding, infection, scar, numbness, pain, damage to surrounding structures, damage to common bile duct requiring additional surgery, conversion to an open procedure, were explained to the patient. He is understanding of the risks and wishes to proceed. See orders Attestations 2 Medical Necessity Statement*: Patient may go home after the procedure. If significant infection or complication, he will need to stay at least 1 further night Coding Level of Care Code Acute Code for [facility] Fwd Diagnoses Acute calculous cholecystitis K80.00
--- NOTE | 2024-04-04 10:16 | PC.CHAP ---
Pastoral Care Encounter/Spiritual Assessment Type of Contact [] Declined wildlife biostation research ecologist visit [] Patient/Family/Request visit [] Outpatient visit [] Follow-up visit [] Physician referral [] Code/Alert [] Routine visit [] Staff referral [] Actively dying [] Patient sleeping [] Family support [] [x] Out of room [] Palliative care [] [] Receiving care in room [] Pre-surgical visit [] Trauma [] Long length of stay [] ICU visit [] Other: Relational/Emotional Strength [] Patient feels connected with others/family/visitors/staff [] Distress [] Loneliness/isolation [] Abandonment Spirituality of Patient [] Person of Patricia [] Attends Zoroastrian of their Patricia [] Believes in Prayer [] Reads Bible or Sikh materials [] There are Spiritual issues to be addressed Deputy Clerk Interventions [] Prayer [] Active listening [] Non-anxious presence [] Spiritual/emotional support [] Crisis/trauma care [] Spiritual counseling [] Bereavement support [] Provided bereavement packet [] Provided Bible/devotional materials [] Provided toy/stuffed animal, coloring book to patient or family member [] Provided Communion [] Anointing/[place] [] Salvation [] Completed spiritual assessment [] Other: Impact on Illness or Injury [] Angry [] Fearful [] Anxious [] Often cries [] Exhaustion [] Unable to work [] Unable to attend mandaeism [] Unable to walk/stand [] Unable to read [] Unable to drive [] Unable to eat/drink [] Unable to sleep [] Unable to be with family [] Patient intubated [] Other: Summary Time spent with patient
--- NOTE | 2024-04-04 10:40 | P.ANESASSM_ITS ---
Pre-Anesthetic Assessment Height/Weight: Height 5 ft 6 in Weight 156 lb Temp Pulse Resp BP Pulse Ox O2 Del Method 97.2 F L 68 17 122/74 100 Room Air 04/04/24 08:59 04/04/24 08:59 04/04/24 08:59 04/04/24 08:59 04/04/24 08:59 04/04/24 08:59 Preop Diagnosis: Cholecystitis Operation Date: 04/04/24 10:05 Proposed Procedures p Laparoscopic Cholecystectomy(Not Applicable) - Lamont Kearns, DO Was Beta Adeel taken within 24 hours: N/A Was Clonidine taken within 24 hours: N/A Last intake: Intake Last Liquid Date 04/03/24 Last Liquid Time 23:30 Last Solid Date 04/03/24 Last Solid Time 15:00 Social Alcohol and No tobacco Drinks multiple glasses of whiskey a day Exam alert, oriented x 3, clear to auscultation bilaterally and regular rate & rhythm Airway Submandibular: within normal limits Cervical ROM: within normal limits Mallampati: Class II Dentition: full Anesthetic Plan ASA status: 2 Anesthesia: General Other: No prior issues with anesthesia NPO since yesterday History of hypothyroidism on Synthroid Anxiety/depression Denies any cardiac or pulmonary issues Chronic alcohol use Labs reviewed and acceptable for procedure Plan for GETA Medications/Allergies Home Medications Medication Instructions Recorded Confirmed Last Taken Type buspirone 15 mg tablet 15 mg PO TID 08/07/22 04/03/24 Unknown History clonazepam 0.5 mg tablet 0.5 mg PO TID 08/07/22 04/03/24 Unknown History syringe with needle 3 mL 23 x 1 #100 ea 01/14/23 04/03/24 Unknown Rx (BD Luer-Vadim Syringe) albuterol sulfate 90 mcg/actuation 2 inh inhalation Q6H PRN shortness 04/25/23 04/03/24 Unknown Rx aerosol inhaler of breath or wheezing #6.7 grams levothyroxine 125 mcg tablet 125 mcg PO DAILY #60 tabs 02/01/24 04/03/24 Unknown Rx escitalopram oxalate 20 mg tablet 20 mg PO DAILY 04/03/24 04/03/24 Unknown History lurasidone 80 mg tablet 80 mg PO QPM 04/03/24 04/03/24 Unknown History testosterone cypionate 200 mg/mL 0.375 mg SUBCUT Q14D 04/03/24 04/03/24 Unknown History intramuscular oil amoxicillin 875 mg-potassium 1 tab PO Q12H #14 tabs 04/04/24 Unknown Rx clavulanate 125 mg tablet docusate sodium 100 mg capsule 100 mg PO BID #14 caps 04/04/24 Unknown Rx (Colace) hydrocodone 7.5 mg-acetaminophen 1 tab PO Q6H PRN pain #20 tabs 04/04/24 Unknown Rx 325 mg tablet polyethylene glycol 3350 17 17 g PO DAILY 2 weeks #238 grams 04/04/24 Unknown Rx gram/dose oral powder (Miralax) Allergies Allergy/AdvReac Type Severity Reaction Status Date / Time No Known Allergies Allergy Verified 04/03/24 06:31 Current Medications Generic Name Dose Route Start Last Admin Trade Name Freq PRN Reason Stop Dose Admin Piperacillin Sod/Tazobactam 50 mls @ 12.5 mls/hr 04/03/24 20:45 04/04/24 04:46 Sod 3.375 gm/ Sodium Chloride IV 12.5 mls/hr Q8H ZOË Administration Protocol Sodium Chloride 1,000 mls @ 30 mls/hr 04/04/24 09:00 04/04/24 09:14 Sodium Chloride 0.9% IV 04/05/24 08:59 30 mls/hr .Q24H ZOË Administration PFSH Anesthesia Medical History Generalized anxiety disorder Moderate major depression Anxiety Testosterone deficiency in male Hypothyroidism Migraine Surgical History History of thyroidectomy, total History of sinus surgery Family History Grandmother Cancer Paternal-colon Grandfather Cancer Paternal-colon Other Dementia Diabetes Hypertension Lung disease Psychiatric illness Denies family history of CAD (coronary artery disease) Clotting disorder Hyperlipidemia Chronic kidney disease (CKD) Anesthesia complication Bleeding disorder Stroke Social History Smoking and tobacco/nicotine status: never used tobacco/nicotine Alcohol intake: current Alcohol intake frequency: few times a month Substance/Drug Use: never Lives independently: Yes Marital status: Number of children: 2 Current occupational status: employed 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 [employer] Special dianna needs: No Agree to transfusion: Yes Data Anesthesia 04/03/24 06:40 04/03/24 06:40 Short CBC 04/03/24 Range/Units 06:40 WBC 11.60 H (3.29-11.43) 10^3/uL Hgb 15.10 (11.27-16.99) g/dL Hct 45.7 (37-53) % MCV 89.8 (82-101) fl Plt Count 473 H (157-399) 10^3/cmm Neut % (Auto) 51.4 % Neut # (Auto) 5.98 (1.8-7.7) 10^3/uL BMP 04/03/24 06:40 Sodium 139 Potassium 3.7 Chloride 100 Carbon Dioxide 27 BUN 9 Creatinine 1.1 Glucose 116 H Calcium 9.6 Liver Function 04/03/24 Range/Units 06:40 Total Bilirubin 0.2 (0.15-1.2) mg/dL AST 19 (0-40) U/L ALT 35 (0-41) U/L Alkaline Phosphatase 139 H (40-130) U/L Albumin 4.7 (3.5-5.2) g/dL Urine 04/03/24 Range/Units 09:15 Urine Color Yellow (Yellow) Urine Appearance Clear (CLEAR) Urine pH 6.5 (5-7) Ur Specific [place] 1.012 (1.005-1.030) Urine Protein Negative (Negative) Urine Glucose (UA) Negative (Normal) Urine Ketones Negative (Negative) Urine Nitrate Negative (Negative) Urine Bilirubin Negative (Negative) Ur Leukocyte Esterase Negative (Negative) Urine RBC 0-2 (0-2) /hpf Urine WBC 0-5 (0-5) /hpf Cardiac Studies: 2 No Data to Display
[2024-04-04] MEDS: lidocaine-epi 2% PF 1:200,000 20 mL SDV XX (11:38)
--- NOTE | 2024-04-04 12:00 | P.OP_ITS ---
Operative Report Date of procedure: April 04, 2024 Surgeon: Lamont Kearns DO Brief History: This is a very pleasant 48-year-old gentleman who presented to hospital with abdominal pain. He was diagnosed with acute calculous cholecystitis. Laparoscopic cholecystectomy was indicated. The procedure benefits were explained and documented. Procedure: Preoperative diagnosis: Acute calculous cholecystitis Postoperative diagnosis: Same Procedure performed: Laparoscopic cholecystectomy Surgeon: Dr. Lamont Kearns DO Estimated blood loss: 5 mL Specimens: Gallbladder to pathology Complications: None apparent Description of procedure: Patient was wheeled into the operative room and placed on the OR table in a supine position. Abdomen was inspected prepped and draped in usual sterile fashion. Time-out was performed and all present were in agreement. A 15 blade scalp was used to make a stab incision in the left upper quadrant and intra- abdominal insufflation was achieved using a Veress needle. After localizing the tissue incisions were made and a 5 millimeter trocar was placed into the umbilicus as well as 2 in the right upper quadrant. A 12 millimeter trocar was placed in the epigastrium. Gallbladder was grasped and elevated. The triangle of Calot was carefully dissected using blunt dissection and electrocautery until the triangle of Calot clearly identified. The cystic duct was clipped proximally and double clipped distally. The duct was then ligated proximally. The cystic artery was doubly clipped and ligated. The gallbladder was then removed from the liver bed using electrocautery. The gallbladder was removed from the abdomen using an Endo-Catch bag through the epigastric incision. The gallbladder was very large and filled with very large stones. The epigastric incision had to be extended significantly to remove gallbladder. The liver bed was inspected and no bleeding was seen. The abdomen was irrigated and suctioned. All ports removed. Skin was washed and dried. The epigastric incision was closed at the dermis using 3-0 Vicryl in interrupted fashion. Incisions were closed with 4-0 Monocryl in a subcuticular interrupted fashion. Skin glue was applied. Patient tolerated the procedure well.
--- NOTE | 2024-04-04 12:02 | P.DS_ITS ---
Discharge Providers Date of Admission: 04/03/24 12:38 Date of Discharge: April 04, 2024 Attending Provider at Admission: Lamont Kearns DO Attending Provider at Discharge: Lamont Kearns DO Primary Care Provider: Taz Williamson MD Diagnoses at Discharge Discharge Diagnosis (1) Acute calculous cholecystitis: Status: Resolved Reason for Visit Reason for Visit: abd pain Hospital Course Hospital Course This is a very pleasant 48-year-old gentleman who presented to the hospital with abdominal pain. He was diagnosed with acute calculus cholecystitis. He underwent laparoscopic cholecystectomy was discharged home afterwards in good condition Physical Exam Narrative: General : Patient is well developed , no acute distress, oriented x3 Head : Normal cephalic, a-traumatic. Ears : Pinnae and external canal are normal. Hearing is normal. Eyes : PERRLA, Sclera and injection are normal. No conjunctival discharge. Nose : Mucous membranes are without erythema. Throat : buccal mucosa is normal, gums are without significant recession or hypertrophy. Lungs : Equal chest rise bilaterally, no use of accessory muscles, trachea is midline. Cor : Rate and rhythm are normal. Abdomen : Soft, ND, appropriately tender, no g/r/m Extremities : No edema, no cyanosis or clubbing, dorsalis pedis pulses are present bilaterally, non-tender to palpation of calves. Upper extremities are normal bilaterally. Back : non-tender to palpation, no CVA tenderness. Neuro : CN II - XII intact, Upper and lower extremities have equal and full strength Discharge Data Studies Completed and Pending Completed Studies During Hospitalization Category Date Time Status XR chest 1V portable [id number] Stat Exams 04/03/24 06:27 Completed US gall bladder [id number] Stat Ultrasound 04/03/24 07:44 Completed Pending at discharge Category Date Time Status Pathology: Surgical [PTH] Routine Pth 04/04/24 11:25 Ordered Radiology Impressions Chest X-Ray 04/03/24 06:27 IMPRESSION: No acute findings. Gallbladder Ultrasound 04/03/24 07:44 IMPRESSION: 1. Findings of acute cholecystitis. 2. There are several stones within the gallbladder and some of the stones are entrapped in the gallbladder neck. Recommend surgical evaluation. If there are entrapped stones at the gallbladder neck patient is at risk for developing fistulous communication with the duodenum. 3. No intrahepatic ductal bile duct dilatation. Laboratory Results WBC 11.60 10^3/uL (3.29-11.43) H 04/03/24 06:40 RBC 5.09 10^6/uL (3.85-5.65) 04/03/24 06:40 Hgb 15.10 g/dL (11.27-16.99) 04/03/24 06:40 Hct 45.7 % (37-53) 04/03/24 06:40 MCV 89.8 fl (82-101) 04/03/24 06:40 MCH 29.7 pg (27-33) 04/03/24 06:40 MCHC 33.0 g/dL (30-55) 04/03/24 06:40 RDW 13.3 % (12.1-15.1) 04/03/24 06:40 Plt Count 473 10^3/cmm (157-399) H 04/03/24 06:40 MPV 9.0 fL (7.4-10.4) 04/03/24 06:40 Neut % (Auto) 51.4 % 04/03/24 06:40 Lymph % (Auto) 38.9 % 04/03/24 06:40 [place] % (Auto) 6.5 % 04/03/24 06:40 Eos % (Auto) 2.1 % 04/03/24 06:40 Baso % (Auto) 0.8 % 04/03/24 06:40 Neut # (Auto) 5.98 10^3/uL (1.8-7.7) 04/03/24 06:40 Lymph # (Auto) 4.5 10^3/uL (0.8-4.8) 04/03/24 06:40 [place] # (Auto) 0.8 10^3/uL (0.2-0.9) 04/03/24 06:40 Eos # (Auto) 0.2 10^3/uL (0.0-0.8) 04/03/24 06:40 Baso # (Auto) 0.1 10^3/uL (0.0-0.1) 04/03/24 06:40 Nucleated RBC % (auto) 0 % 04/03/24 06:40 Nucleated RBCs # 0.0 /100WBC 04/03/24 06:40 Sodium 139 mmol/L (136-145) 04/03/24 06:40 Potassium 3.7 mmol/L (3.5-5.1) 04/03/24 06:40 Chloride 100 mmol/L (98-107) 04/03/24 06:40 Carbon Dioxide 27 mmol/L (22-29) 04/03/24 06:40 Anion Gap 15.7 (5-19) 04/03/24 06:40 BUN 9 mg/dL (6-20) 04/03/24 06:40 Creatinine 1.1 mg/dL (0.7-1.2) 04/03/24 06:40 GFR Calculation 72.1 mL/min (90-130) L 04/03/24 06:40 Glucose 116 mg/dL (65-115) H 04/03/24 06:40 Calculated Osmolality 288 mOsm/kg (285-295) 04/03/24 06:40 Calcium 9.6 mg/dL (8.5-10.5) 04/03/24 06:40 Total Bilirubin 0.2 mg/dL (0.15-1.2) 04/03/24 06:40 AST 19 U/L (0-40) 04/03/24 06:40 ALT 35 U/L (0-41) 04/03/24 06:40 Alkaline Phosphatase 139 U/L (40-130) H 04/03/24 06:40 Total Protein 7.9 g/dL (6.6-8.7) 04/03/24 06:40 Albumin 4.7 g/dL (3.5-5.2) 04/03/24 06:40 Globulin 3.2 g/dL (1.3-4.6) 04/03/24 06:40 Lipase 54 U/L (13-60) 04/03/24 06:40 Urine Color Yellow (Yellow) 04/03/24 09:15 Urine Appearance Clear (CLEAR) 04/03/24 09:15 Urine pH 6.5 (5-7) 04/03/24 09:15 Ur Specific [place] 1.012 (1.005-1.030) 04/03/24 09:15 Urine Protein Negative (Negative) 04/03/24 09:15 Urine Glucose (UA) Negative (Normal) 04/03/24 09:15 Urine Ketones Negative (Negative) 04/03/24 09:15 Urine Blood Negative (Negative) 04/03/24 09:15 Urine Nitrate Negative (Negative) 04/03/24 09:15 Urine Bilirubin Negative (Negative) 04/03/24 09:15 Urine Urobilinogen 1.0 mg/dL (Negative) 04/03/24 09:15 Ur Leukocyte Esterase Negative (Negative) 04/03/24 09:15 Urine RBC 0-2 /hpf (0-2) 04/03/24 09:15 Urine WBC 0-5 /hpf (0-5) 04/03/24 09:15 Ur Squamous Epith Cells 0-5 /hpf (0-5) 04/03/24 09:15 Amorphous Sediment Not Reportable 04/03/24 09:15 Urine Bacteria None seen /hpf (NONE) 04/03/24 09:15 Hyaline Casts 0-4 /lpf H 04/03/24 09:15 Procedures Performed Laparoscopic cholecystectomy Vitals Last Vital Signs Temp 97.2 F L 04/04/24 08:59 Pulse 68 04/04/24 08:59 Resp 17 04/04/24 08:59 BP 122/74 04/04/24 08:59 Pulse Ox 100 04/04/24 08:59 O2 Del Method Room Air 04/04/24 08:59 Discharge Plan Discharge Patient Disposition: Home Condition: Stable Prescriptions: New amoxicillin-pot clavulanate 875-125 mg tablet 1 tab PO BID Qty: 14 0RF docusate sodium [Colace] 100 mg capsule 100 mg PO BID Qty: 14 0RF polyethylene glycol 3350 [Miralax] 17 gram/dose powder 17 g PO DAILY Qty: 238 0RF hydrocodone-acetaminophen 7.5-325 mg tablet 1 tab PO Q6H PRN (Reason: pain) Qty: 20 0RF Continued albuterol sulfate 90 mcg/actuation HFA aerosol inhaler 2 inh inhalation Q6H PRN (Reason: shortness of breath or wheezing) Qty: 6.7 0RF buspirone 15 mg tablet 15 mg PO TID (DME) BD Luer-Vadim Syringe 3 mL 23 x 1 syringe See Rx Instructions .ROUTE .COMPLEX Qty: 100 0RF Dose Instruction: USE DIRECTED FOR TESTOSTERONE INJECTION Rx Instructions: USE DIRECTED FOR TESTOSTERONE INJECTION levothyroxine 125 mcg tablet 125 mcg PO DAILY Qty: 60 1RF testosterone cypionate 200 mg/mL oil 0.375 mg SUBCUT Q14D escitalopram oxalate 20 mg tablet 20 mg PO DAILY lurasidone 80 mg tablet 80 mg PO QPM Held clonazepam 0.5 mg tablet 0.5 mg PO TID Hold Instructions: Resume on 04/05/24. No Action pantoprazole [Protonix] 40 mg tablet,delayed release (DR/EC) 40 mg PO BID 30 Days Qty: 60 2RF lansoprazole [Prevacid] 30 mg capsule,delayed release(DR/EC) 30 mg PO DAILY Qty: 30 0RF Discharge Orders: Discharge Order (Routine); Ordered 04/04/24 Ordered By: Lamont Kearns Referrals: Lamont Kearns DO [Physician] - (We have notified your physician's clinic of the need for a follow-up appointment to be scheduled. If you have not heard from them within the next 2 business days, please call them directly. ) Taz Williamson MD [Primary Care Provider] - 05/08/24 9:30 am Discharge Diet: Advance as tolerated Discharge Activity: Resume usual activity Patient Instructions: Hydrocodone/Acetaminophen (By mouth), Amoxicillin/Clavulanate Potassium (By mouth), Acute Wound Care (DC), Laparoscopic Cholecystectomy (GEN), Opioid Safety, Post Anesthesia Care Activity Restrictions/Additional Instructions: Do not soak incisions underwater for 2 weeks. Shower regularly Stand Alone Forms: Work/School Release Discharge Attestations Time Spent in Discharge Care*: less than 30 min Quality Metrics Clinical Quality Measures [ No reported AMI, CVA or VTE this stay] Coding Level of Care Code Acute Code for g Fwd Diagnoses Acute calculous cholecystitis K80.00
[2024-04-04] MEDS: ondansetron 2 mg/ML SDV 2 mL 4 MG IVP (12:19)
[2024-04-04] MEDS: HYDROcodone-acetaminophen 7.5-325 mg Tablet 1 TAB PO (12:53)
--- NOTE | 2024-04-06 12:40 | ANE.PACU2 ---
Inpatient post-anesthesia follow up: Airway intact: Yes Vital signs: Temperature 97.4 F Pulse Rate 96 Respiratory Rate 14 Blood Pressure 121/66 Pulse Oximetry 97 Oxygen Delivery Me thod Room Air Oxygen Flow Rate Fraction of Inspir ed Oxygen Hydration adequate: Yes Nausea and vomiting: No Pain level: 1 Mental status: Baseline
== END 2024-04-04 14:43 | disposition home or self-care (01) ==
LOC: ER 10:45 → MEDSURG 13:17
PROVIDERS: Admitting Provider Surgery; Emergency Provider Family Medicine; PCP Family Medicine; Visit Provider Surgery
PROC: 0FT44ZZ Resection of Gallbladder, Percutaneous Endoscopic Approach (ICD-10-PCS; CPT 47562; principal; 2024-04-04 10:05)
DX: K80.10 Calculus of gallbladder with chronic cholecystitis without obstruction (principal); E03.9 Hypothyroidism, unspecified; F41.9 Anxiety disorder, unspecified
CPT/HCPCS: 47562; 71045; 76705; 80053; 81001; 83690; 85025; 88304; 93005; 96365; 99285; G0378; J1100; J2250; J2405; J2543; J2704; J2710; J3010; J3490; J7030

== ENCOUNTER 2024-04-05 03:28 | Emergency (ER) | payer OTHER, SELFPAY ==
[2024-04-05] VITALS (8 sets, daily range): BP systolic 103–136; BP diastolic 66–78; PULSE 89–104; RESP 16–18; TEMP 36.6–36.9; O2SAT 93–98; BMI 25.0
--- NOTE | 2024-04-05 03:45 | PC.NURSE ---
drank water last at 3 am
--- NOTE | 2024-04-05 03:54 | ECG_ITS ---
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 Measurements Intervals [place] Rate: 94 P: 54 SC: 165 QRS: 41 QRSD: 84 T: 26 QT: 287 QTc: 359 Interpretive Statements SINUS RHYTHM NONSPECIFIC T-WAVE ABNORMALITY Compared to ECG 04/03/2024 07:14:04 T-wave abnormality now present Sinus bradycardia no longer present Electronically Signed On 04-05-2024 17:32:17 MATERIALS ASSISTANT by Marni Garcia M.D. [email or web address]
--- NOTE | 2024-04-05 03:54 | XRR_ITS ---
PROCEDURE INFORMATION: Exam: XR Chest Exam date and time: 04/05/2024 4:05 AM Age: 48 years old Clinical indication: Pain; Chest pressure; Prior surgery; Surgery date: Post-operative (0-2 days); Surgery type: Choley yesterday; Additional info: R shoulder pain/chest pain TECHNIQUE: Imaging protocol: Radiologic exam of the chest. Views: 1 view. COMPARISON: CR XR chest 1V portable [id number] 04/03/2024 6:39 AM FINDINGS: Lungs: Unremarkable. No consolidation. Pleural spaces: Unremarkable. No pleural effusion. No pneumothorax. Heart/Mediastinum: Unremarkable. No cardiomegaly. Bones/joints: Unremarkable. Intraperitoneal space: Expected postoperative intraperitoneal air. XR/XR chest 1V portable [id number] IMPRESSION: Expected postoperative intraperitoneal air.
--- NOTE | 2024-04-05 03:58 | ED_ITS ---
HPI - Abdominal Pain 2 General: Chief Complaint: Abdominal Pain Stated Complaint: right shoulder pain Time Seen by Provider: 04/05/24 03:38 History of Present Illness: 48-year-old male patient with a history of recently diagnosed acute cholecystitis. He underwent laparoscopic cholecystectomy yesterday, and was allowed discharge home. Last night he developed significant right sided shoulder pain. Pain is worse with deep breathing. He is somewhat short of breath. His belly is not overly tender or painful. He has not been passing gas. He has not had a bowel movement since before he came into the hospital 2 days prior. No fever. No vomiting. He was not able to get his prescriptions filled yesterday postoperatively, so he has been using Tylenol and ibuprofen. Related Data Home Medications Medication Instructions Recorded Confirmed buspirone 15 mg tablet 15 mg PO TID 08/07/22 04/05/24 clonazepam 0.5 mg tablet 0.5 mg PO TID 08/07/22 04/05/24 escitalopram oxalate 20 mg tablet 20 mg PO DAILY 04/03/24 04/05/24 lurasidone 80 mg tablet 80 mg PO QPM 04/03/24 04/05/24 testosterone cypionate 200 mg/mL 0.375 mg SUBCUT Q14D 04/03/24 04/05/24 intramuscular oil Previous Rx's Medication Instructions Recorded syringe with needle 3 mL 23 x 1 #100 ea 01/14/23 (BD Luer-Vadim Syringe) albuterol sulfate 90 mcg/actuation 2 inh inhalation Q6H PRN shortness 04/25/23 aerosol inhaler of breath or wheezing #6.7 grams levothyroxine 125 mcg tablet 125 mcg PO DAILY #60 tabs 02/01/24 amoxicillin 875 mg-potassium 1 tab PO BID #14 tabs 04/04/24 clavulanate 125 mg tablet docusate sodium 100 mg capsule 100 mg PO BID #14 caps 04/04/24 (Colace) hydrocodone 7.5 mg-acetaminophen 1 tab PO Q6H PRN pain #20 tabs 04/04/24 325 mg tablet polyethylene glycol 3350 17 17 g PO DAILY #238 grams 04/04/24 gram/dose oral powder (Miralax) lansoprazole 30 mg capsule,delayed 30 mg PO DAILY #30 caps 04/05/24 release (Prevacid) Allergies Allergy/AdvReac Type Severity Reaction Status Date / Time No Known Allergies Allergy Verified 04/03/24 06:31 PFSH ED 2 PFSH: Medical History Generalized anxiety disorder Moderate major depression Anxiety Testosterone deficiency in male Hypothyroidism Migraine Surgical History History of thyroidectomy, total History of sinus surgery Family History Grandmother Cancer Paternal-colon Grandfather Cancer Paternal-colon Other Dementia Diabetes Hypertension Lung disease Psychiatric illness Denies family history of CAD (coronary artery disease) Clotting disorder Hyperlipidemia Chronic kidney disease (CKD) Anesthesia complication Bleeding disorder Stroke Social History Smoking and tobacco/nicotine status: never used tobacco/nicotine Alcohol intake: current Alcohol intake frequency: few times a month Substance/Drug Use: never Lives independently: Yes Marital status: Number of children: 2 Current occupational status: employed 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 [employer] Special dianna needs: No Agree to transfusion: Yes Physical Exam 2 Const: COMMON NORMALS: no acute distress GENERAL APPEARANCE: cooperative; not ill appearing and not frail appearing HENMT: COMMON NORMALS: normocephalic, atraumatic and Normal external nose present HEAD & SCALP: normocephalic and atraumatic FACE & SINUS: normal facial exam and face symmetric NOSE: Normal external nose present Eye: COMMON NORMALS: Equal, round and reactive pupils present and EOMs intact bilaterally PUPIL: Yes Equal, round and reactive pupils present Neck/C-Spine: GENERAL: Yes trachea midline Chest: CHEST: Yes Symmetrical chest wall rise OTHER: Chest wall is tender to palpation anteriorly and posteriorly laterally. There is some mild shoulder tenderness as well. Minimal increased pain with shoulder movement. Resp: COMMON NORMALS: normal respiratory effort, No retractions, No use of accessory muscles and clear to auscultation bilaterally AUSCULTATION: clear to auscultation bilaterally Cardio: COMMON NORMALS: regular rate and regular rhythm RATE: regular rate RHYTHM: regular rhythm GI: COMMON NORMALS: Normal to inspection, nondistended, normoactive bowel sounds present OTHER: Minimal tenderness. No distention. Extremity: COMMON NORMALS: no pedal edema Neuro: MAYO COMA SCALE: document GCS findings Mayo coma scale eye opening: Spontaneous Mayo coma scale verbal response: Orientated [place] coma scale motor response: Obey commands [place] coma scale total score: 15 S ENSORY EXAM: Yes extremities (intact) Psych: COMMON NORMALS: speech normal SPEECH: Yes normal speech Skin: COMMON NORMALS: no rashes or lesions noted GENERAL SKIN EXAM: no rashes or lesions noted Course 2 Vital Signs: Vital signs: Vital Signs Temperature 98.4 F 04/05/24 03:35 Pulse Rate 89 04/05/24 05:30 Respiratory Rate 18 04/05/24 05:30 Blood Pressure 104/69 04/05/24 05:30 Pulse Oximetry 96 04/05/24 05:30 Oxygen Delivery Me thod Room Air 04/05/24 05:30 MDM - Abdominal Pain Medical Decision Making 48-year-old male with right shoulder pain postcholecystectomy. He is afebrile. He is mildly tachycardic. His white blood cell count is 19. Bilirubin is normal. He has mild elevations in his liver enzymes. His CRP is only 8.6. His lipase is normal at 24. Chest x-ray shows a small amount of air under his diaphragm expected postcholecystectomy. D-dimer slightly elevated. Because of tachycardia, leukocytosis, D-dimer elevation, and shoulder pain at a postop patient, CTA of the chest with follow-through of the belly was performed and shows expected findings. There is also a patulous fluid-filled esophagus. The patient was informed of this, we will treat with lansoprazole, and he will make his surgeon aware at his cholecystectomy follow-up. He knows to return for worsening symptoms. He is given magnesium citrate to induce passage of gas and bowel movements, and dispensed 2 pain pills as today is and the pharmacies are closed. Lab Data 04/05/24 04:20 04/05/24 04:20 Labs/Radiology: Radiology Impressions Chest X-Ray 04/05/24 03:54 IMPRESSION: Expected postoperative intraperitoneal air. Chest/Abdomen/Pelvis CT 04/05/24 04:52 IMPRESSION: 1. Findings of which can be seen in esophagitis, difficult to exclude neoplasm given lack prior comparisons. Recommend gastroenterology consultation further assessment. 2. Patient is aspiration risk given fluid-filled patulous esophagus. IMPRESSION: Expected postoperative changes, please see CT of the chest for esophageal findings. Laboratory Results WBC 19.19 10^3/uL (3.29-11.43) H 04/05/24 04:20 RBC 4.47 10^6/uL (3.85-5.65) 04/05/24 04:20 Hgb 13.30 g/dL (11.27-16.99) 04/05/24 04:20 Hct 40.0 % (37-53) 04/05/24 04:20 MCV 89.5 fl (82-101) 04/05/24 04:20 MCH 29.8 pg (27-33) 04/05/24 04:20 MCHC 33.3 g/dL (30-55) 04/05/24 04:20 RDW 13.2 % (12.1-15.1) 04/05/24 04:20 Plt Count 449 10^3/cmm (157-399) H 04/05/24 04:20 MPV 9.0 fL (7.4-10.4) 04/05/24 04:20 Neut % (Auto) 89.0 % 04/05/24 04:20 Lymph % (Auto) 5.0 % 04/05/24 04:20 Maury % (Auto) 5.1 % 04/05/24 04:20 Eos % (Auto) 0.0 % 04/05/24 04:20 Baso % (Auto) 0.1 % 04/05/24 04:20 Neut # (Auto) 17.08 10^3/uL (1.8-7.7) H 04/05/24 04:20 Lymph # (Auto) 1.0 10^3/uL (0.8-4.8) 04/05/24 04:20 Maury # (Auto) 1.0 10^3/uL (0.2-0.9) H 04/05/24 04:20 Eos # (Auto) 0.0 10^3/uL (0.0-0.8) 04/05/24 04:20 Baso # (Auto) 0.0 10^3/uL (0.0-0.1) 04/05/24 04:20 Nucleated RBC % (auto) 0 % 04/05/24 04:20 Nucleated RBCs # 0.0 /100WBC 04/05/24 04:20 D-Dimer 0.83 ug/mLFEU (0-0.59) H 04/05/24 04:20 Sodium 136 mmol/L (136-145) 04/05/24 04:20 Potassium 4.2 mmol/L (3.5-5.1) 04/05/24 04:20 Chloride 99 mmol/L (98-107) 04/05/24 04:20 Carbon Dioxide 23 mmol/L (22-29) 04/05/24 04:20 Anion Gap 18.2 (5-19) 04/05/24 04:20 BUN 8 mg/dL (6-20) 04/05/24 04:20 Creatinine 0.9 mg/dL (0.7-1.2) 04/05/24 04:20 GFR Calculation 90.8 mL/min (90-130) 04/05/24 04:20 Glucose 181 mg/dL (65-115) H 04/05/24 04:20 Calculated Osmolality 285 mOsm/kg (285-295) 04/05/24 04:20 Calcium 9.1 mg/dL (8.5-10.5) 04/05/24 04:20 Total Bilirubin 0.5 mg/dL (0.15-1.2) 04/05/24 04:20 AST 60 U/L (0-40) H 04/05/24 04:20 ALT 103 U/L (0-41) H 04/05/24 04:20 Alkaline Phosphatase 135 U/L (40-130) H 04/05/24 04:20 C-Reactive Protein 8.6 mg/L (0.0-4.9) H 04/05/24 04:20 Total Protein 6.7 g/dL (6.6-8.7) 04/05/24 04:20 Albumin 4.0 g/dL (3.5-5.2) 04/05/24 04:20 Globulin 2.7 g/dL (1.3-4.6) 04/05/24 04:20 Lipase 24 U/L (13-60) 04/05/24 04:20 All radiology interpretation(s) finalized by discharge Discharge Plan Discharge Patient Disposition: Home Clinical Impression: Acute postoperative pain of right shoulder, Status post laparoscopic cholecystectomy Condition: Stable Prescriptions: New lansoprazole [Prevacid] 30 mg capsule,delayed release(DR/EC) 30 mg PO DAILY Qty: 30 0RF No Action albuterol sulfate 90 mcg/actuation HFA aerosol inhaler 2 inh inhalation Q6H PRN (Reason: shortness of breath or wheezing) Qty: 6.7 0RF clonazepam 0.5 mg tablet 0.5 mg PO TID Hold Instructions: Resume on 04/05/24. buspirone 15 mg tablet 15 mg PO TID (DME) BD Luer-Vadim Syringe 3 mL 23 x 1 syringe See Rx Instructions .ROUTE .COMPLEX Qty: 100 0RF Dose Instruction: USE DIRECTED FOR TESTOSTERONE INJECTION Rx Instructions: USE DIRECTED FOR TESTOSTERONE INJECTION levothyroxine 125 mcg tablet 125 mcg PO DAILY Qty: 60 1RF testosterone cypionate 200 mg/mL oil 0.375 mg SUBCUT Q14D escitalopram oxalate 20 mg tablet 20 mg PO DAILY lurasidone 80 mg tablet 80 mg PO QPM amoxicillin-pot clavulanate 875-125 mg tablet 1 tab PO BID Qty: 14 0RF docusate sodium [Colace] 100 mg capsule 100 mg PO BID Qty: 14 0RF polyethylene glycol 3350 [Miralax] 17 gram/dose powder 17 g PO DAILY Qty: 238 0RF hydrocodone-acetaminophen 7.5-325 mg tablet 1 tab PO Q6H PRN (Reason: pain) Qty: 20 0RF Discharge Orders: Discharge ED (Routine); Ordered 04/05/24 Ordered By: Eugene Greenwood Referrals: Taz Williamson MD [Primary Care Provider] - Patient Instructions: Pain Management (ED), Opioid Safety, Pain Management Activity Restrictions/Additional Instructions: Medication as directed for pain. Take the magnesium citrate when you get home to induce bowel movements. Lansoprazole is to be used for findings consistent with inflammation of your esophagus found on CAT scan. Be sure to let your surgeon know on your cholecystectomy follow-up that this was a finding when you return to the emergency department after your surgery. Return for worsening pain despite treatment, fever greater than 100 ?F, vomiting liquids or medications, any other concerning symptoms. Coding Level of Care Code ED Pr Manager for Ernesto Torres
[2024-04-05] MEDS: morphine 4 mg/mL SDV 1 mL IVP (04:19)
[2024-04-05] MEDS: ketorolac 30 mg/mL INJ IVP (04:20)
[2024-04-05 04:36] LABS: Basophils % 0.1 %; Mean Corpuscular HGB Conc 33.3 g/dL (30-55); Mean Corpuscular Hemoglobin 29.8 pg (27-33); Mean Corpuscular Volume 89.5 fl (82-101); Monocytes % 5.1 %; Neutrophils # 17.08 10^3/uL (1.8-7.7); Nucleated Red Blood Cells % 0 %; Platelet Count 449 10^3/cmm (157-399); Red Blood Count 4.47 10^6/uL (3.85-5.65); Red Cell Distribution Width 13.2 % (12.1-15.1); White Blood Count 19.19 10^3/uL (3.29-11.43)
[2024-04-05 04:49] LABS: D Dimer 0.83 ug/mLFEU (0-0.59)
--- NOTE | 2024-04-05 04:52 | CTR_ITS ---
PROCEDURE INFORMATION: Exam: CTA Chest With Contrast Exam date and time: 04/05/2024 5:02 AM Age: 48 years old Clinical indication: Abdominal pain; Chest pressure and chest wall pain; Prior surgery; Surgery date: Post-operative (0-2 days); Surgery type: Choley yesterday; Additional info: R shoulder pain, abd pain post op cholecystectomy TECHNIQUE: Imaging protocol: Computed tomographic angiography of the chest with contrast. Exam focused on the arteries. 3D rendering (Not supervised by radiologist): MIP and/or 3D reconstructed images were created by the technologist. Radiation optimization: All CT scans at this facility use at least one of these dose optimization techniques: automated exposure control; mA and/or kV adjustment per patient size (includes targeted exams where dose is matched to clinical indication); or iterative reconstruction. Contrast material: OMNI 350; Contrast volume: 100 ml; Contrast route: INTRAVENOUS (IV); COMPARISON: CR (CHEST, ) 04/05/2024 4:05 AM RADIATION DOSE METRICS: Total DLP (mGy-cm): 247.5 FINDINGS: Pulmonary arteries: Normal. No pulmonary emboli. Aorta: Unremarkable. No aortic aneurysm. No aortic dissection. Thyroid: Status post thyroidectomy. Lungs: Evolving granulomatous change of the anterior right upper lobe. Posterior/dependent atelectasis. Pleural spaces: Unremarkable. No pneumothorax. No pleural effusion. Heart: Unremarkable. No cardiomegaly. No pericardial effusion. Coronary arteries: No coronary calcified atherosclerotic disease. Esophagus: Patulous fluid-filled esophagus. Distal esophageal wall thickening and surrounding inflammatory change as well as adjacent lymphadenopathy. Lymph nodes: Calcified right hilar lymph nodes. Bones/joints: Minimal scattered degenerative change of the visualized osseous structures. Soft tissues: Unremarkable. PROCEDURE INFORMATION: Exam: CT Abdomen And Pelvis With Contrast Exam date and time: 04/05/2024 5:02 AM Age: 48 years old Clinical indication: Abdominal pain; Chest pressure and chest wall pain; Prior surgery; Surgery date: Post-operative (0-2 days); Surgery type: Choley yesterday; Additional info: R shoulder pain, abd pain post op cholecystectomy TECHNIQUE: Imaging protocol: Computed tomography of the abdomen and pelvis with contrast. Radiation optimization: All CT scans at this facility use at least one of these dose optimization techniques: automated exposure control; mA and/or kV adjustment per patient size (includes targeted exams where dose is matched to clinical indication); or iterative reconstruction. Contrast material: OMNI 350; Contrast volume: 100 ml; Contrast route: INTRAVENOUS (IV); COMPARISON: CR (CHEST, ) 04/05/2024 4:05 AM RADIATION DOSE METRICS: Total DLP (mGy-cm): 449.3 FINDINGS: Liver: Normal. No mass. Gallbladder and biliary ducts: Patient is status post cholecystectomy. Pancreas: Normal. No ductal dilation. Spleen: Multiple splenic granulomas. Adrenal glands: Normal. No mass. Kidneys and ureters: Contrast within the bilateral renal collecting system. Stomach and bowel: Mild colonic stool burden. Appendix: No evidence of appendicitis. Intraperitoneal space: Small volume pneumoperitoneum consistent with patient history recent cholecystectomy. Vasculature: Unremarkable. No abdominal aortic aneurysm. Lymph nodes: Unremarkable. No enlarged lymph nodes. Urinary bladder: Contrast is seen within bladder and bilateral renal collecting system. Reproductive: Unremarkable as visualized. Bones/joints: Degenerative changes without acute finding of the lumbar spine. Soft tissues: Unremarkable. CT/CT angio chest w abd pel wo/w IMPRESSION: 1. Findings of which can be seen in esophagitis, difficult to exclude neoplasm given lack prior comparisons. Recommend gastroenterology consultation further assessment. 2. Patient is aspiration risk given fluid-filled patulous esophagus. IMPRESSION: Expected postoperative changes, please see CT of the chest for esophageal findings.
[2024-04-05 04:54] LABS: Alanine Aminotransferase 103 U/L (0-41); Alkaline Phosphatase 135 U/L (40-130); Anion Gap 18.2 (5-19); Aspartate Amino Transferase 60 U/L (0-40); Blood Urea Nitrogen 8 mg/dL (6-20); C Reactive Protein 8.6 mg/L (0.0-4.9); Calcium 9.1 mg/dL (8.5-10.5); Carbon Dioxide 23 mmol/L (22-29); Chloride 99 mmol/L (98-107); Creatinine Clr Calc Pharmacy 99.6429; Globulin 2.7 g/dL (1.3-4.6); Glomerular Filtration Rate 90.8 mL/min (90-130); Glucose 181 mg/dL (65-115); Lipase 24 U/L (13-60); Osmolality Calculated 285 mOsm/kg (285-295); Potassium 4.2 mmol/L (3.5-5.1); Sodium 136 mmol/L (136-145); Total Bilirubin 0.5 mg/dL (0.15-1.2); Total Protein 6.7 g/dL (6.6-8.7)
[2024-04-05] MEDS: iohexol 350 mg/mL 500 mL Btl (per mL) IV (05:08)
[2024-04-05] MEDS: magnesium citrate Btl 296 mL PO (06:11)
[2024-04-05] MEDS: oxyCODONE-APAP 5-325 mg Tablet 2 TAB PO (06:11)
== END 2024-04-05 06:15 | disposition home or self-care (01) ==
PROVIDERS: Emergency Provider Emergency Medicine; PCP Family Medicine
DX: G89.18 Other acute postprocedural pain (principal); Z98.890 Other specified postprocedural states
CPT/HCPCS: 71045; 71275; 74178; 80053; 83690; 85025; 85378; 86140; 93005; 96374; 96375; 99285; J1885; J2270

== ENCOUNTER 2024-05-08 10:52 | Day surgery (SDC) | payer OTHER, SELFPAY ==
[2024-05-08 11:10] VITALS: BP 109/76; PULSE 77; RESP 18; TEMP 36.2; O2SAT 97; BMI 24.3
[2024-05-08] MEDS: sodium chloride 0.9% 500 ML 15 ML IV (11:18)
--- NOTE | 2024-05-08 12:09 | W.PM.OPSUD ---
Surgery/Procedure H&P Update DATE OF PROCEDURE: May 08, 2024 DATE H&P PERFORMED: 04/14/24 H&P UPDATE INFORMATION: I have reviewed H&P completed within last 30 days, I have examined patient prior to procedure and No changes to prior documentation PLANNED PROCEDURE: Operation Date: 05/08/24 12:00 Proposed Procedures p EGD 63819, G0121, 69565,Z12.11, K20.90(Not Applicable) - Gerson Velez MD s Colonoscopy(Not Applicable) - Gerson Velez MD
--- NOTE | 2024-05-08 12:30 | ANES.PREANE2 ---
Pre-Anesthetic Assessment Height/Weight: Height 1.7 m Weight 70.307 kg Temp Pulse Resp BP Pulse Ox O2 Del Method 97.2 F L 77 18 109/76 97 Room Air 05/08/24 11:10 05/08/24 11:10 05/08/24 11:10 05/08/24 11:10 05/08/24 11:10 05/08/24 11:10 Operation Date: 05/08/24 12:00 Proposed Procedures p EGD 09193, G0121, 74434,Z12.11, K20.90(Not Applicable) - Gerson Velez MD s Colonoscopy(Not Applicable) - Gerson Velez MD Familial anesthetic complications: None Was Beta Adeel taken within 24 hours: N/A Last intake: Intake Last Liquid Date 05/07/24 Last Liquid Time 20:00 Last Solid Date 05/06/24 Last Solid Time 20:00 Social No alcohol and No tobacco Exam alert, oriented x 3, clear to auscultation bilaterally and regular rate & rhythm Airway Mallampati: Class I Dentition: full Metabolic Thyroid Disease Anesthetic Plan ASA status: 2 Anesthesia: MAC Risk of > 500 ml blood loss (7ml/kg in children): No Medications/Allergies Home Medications Medication Instructions Recorded Confirmed Last Taken Type buspirone 15 mg tablet 15 mg PO TID 08/07/22 05/04/24 05/07/24 History clonazepam 0.5 mg tablet 0.5 mg PO TID 08/07/22 05/04/24 05/07/24 History albuterol sulfate 90 mcg/actuation 2 inh inhalation Q6H PRN shortness 04/25/23 05/04/24 Unknown Rx aerosol inhaler of breath or wheezing #6.7 grams levothyroxine 125 mcg tablet 125 mcg PO DAILY #60 tabs 02/01/24 05/04/24 05/08/24 Rx escitalopram oxalate 20 mg tablet 20 mg PO DAILY 04/03/24 05/04/24 05/07/24 History (Lexapro) lurasidone 80 mg tablet (Latuda) 80 mg PO QPM 04/03/24 05/04/24 05/07/24 History testosterone cypionate 200 mg/mL 0.375 mg SUBCUT Q14D 04/03/24 05/04/24 04/27/24 History intramuscular oil lansoprazole 30 mg capsule,delayed 30 mg PO DAILY #30 caps 04/05/24 05/04/24 05/07/24 Rx release (Prevacid) pantoprazole 40 mg tablet,delayed 40 mg PO BID 30 days #60 tabs 04/10/24 05/04/24 05/07/24 Rx release (Protonix) syringe with needle 3 mL 23 x 1 #100 ea 05/01/24 Unknown Rx (BD Luer-Vadim Syringe) docusate sodium 100 mg capsule 100 mg PO BID PRN Constipation 05/04/24 05/04/24 05/04/24 History (Colace) polyethylene glycol 3350 17 17 g PO DAILY PRN Constipation 05/04/24 05/04/24 Unknown History gram/dose oral powder (Miralax) Allergies Allergy/AdvReac Type Severity Reaction Status Date / Time No Known Allergies Allergy Verified 05/04/24 10:24 Current Medications Generic Name Dose Route Start Last Admin Trade Name Freq PRN Reason Stop Dose Admin Sodium Chloride 500 mls @ 15 mls/hr 05/08/24 10:57 05/08/24 11:18 Sodium Chloride 0.9% IV 05/09/24 10:56 15 mls/hr .Q24H PRN Administration COLONOSCOPY FLUIDS PFSH Anesthesia Medical History (Updated 04/13/24 @ 00:00 by XANDER Reyes) Family history of colon cancer Generalized anxiety disorder Moderate major depression Anxiety Testosterone deficiency in male Hypothyroidism Migraine Surgical History (Updated 04/13/24 @ 00:00 by XANDER Reyes) History of laparoscopic cholecystectomy History of thyroidectomy, total History of sinus surgery Family History Grandmother Cancer Paternal-colon Grandfather Cancer Paternal-colon Other Dementia Diabetes Hypertension Lung disease Psychiatric illness Denies family history of CAD (coronary artery disease) Clotting disorder Hyperlipidemia Chronic kidney disease (CKD) Anesthesia complication Bleeding disorder Stroke Social History Smoking and tobacco/nicotine status: never used tobacco/nicotine Alcohol intake: current Alcohol intake frequency: few times a month Substance/Drug Use: never Lives independently: Yes Marital status: Number of children: 2 Current occupational status: employed 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
[2024-05-08 13:06] VITALS: BP 88/59; PULSE 75; RESP 18; TEMP 36.8; O2SAT 98
[2024-05-08 13:20] VITALS: BP 101/72; PULSE 79; RESP 18; O2SAT 98
[2024-05-08 13:30] VITALS: BP 110/71; PULSE 72; RESP 18; O2SAT 100
--- NOTE | 2024-05-08 15:37 | ANE.PACU2 ---
Inpatient post-anesthesia follow up: Airway intact: Yes Vital signs: Temperature 98.2 F Pulse Rate 72 Respiratory Rate 18 Blood Pressure 110/71 Pulse Oximetry 100 Oxygen Delivery Me thod Room Air Oxygen Flow Rate Fraction of Inspir ed Oxygen Hydration adequate: Yes Nausea and vomiting: No Pain level: 1 Mental status: Baseline
== END 2024-05-08 13:48 | disposition home or self-care (01) ==
PROVIDERS: PCP Family Medicine; Visit Provider Student in an Organized Health Care Education/Training Program
PROC: 0DJ08ZZ Inspection of Upper Intestinal Tract, Via Natural or Artificial Opening Endoscopic (ICD-10-PCS; principal; 2024-05-08 12:00)
PROC: 0DJD8ZZ Inspection of Lower Intestinal Tract, Via Natural or Artificial Opening Endoscopic (ICD-10-PCS; CPT 45378; 2024-05-08 12:00)
DX: Z12.11 Encounter for screening for malignant neoplasm of colon (principal); K29.50 Unspecified chronic gastritis without bleeding; Z80.0 Family history of malignant neoplasm of digestive organs; Z79.899 Other long term (current) drug therapy; Z79.890 Hormone replacement therapy; E03.9 Hypothyroidism, unspecified; F41.1 Generalized anxiety disorder; F32.1 Major depressive disorder, single episode, moderate; Z90.49 Acquired absence of other specified parts of digestive tract; E29.1 Testicular hypofunction; G43.909 Migraine, unspecified, not intractable, without status migrainosus
CPT/HCPCS: 45378; 88305; J2704; J7040

== ENCOUNTER → 2024-05-19 14:37 | Outpatient (BNVA) | payer OTHER, SELFPAY | PROVIDERS: PCP Family Medicine; Visit Provider Family Medicine | DX: E03.9 Hypothyroidism, unspecified (principal) | CPT/HCPCS: 84443 ==

== ENCOUNTER → 2024-07-20 09:19 | Outpatient (BNVA) | payer OTHER, SELFPAY | PROVIDERS: PCP Family Medicine; Visit Provider Family Medicine | DX: E29.1 Testicular hypofunction (principal) | CPT/HCPCS: 80053; 84403; 84443 ==

== ENCOUNTER 2025-04-05 14:32 | Observation (INO) | payer OTHER, SELFPAY ==
[2025-04-05 14:40] VITALS: BP 113/88; PULSE 108; RESP 28; TEMP 36.6; O2SAT 99; BMI 27.6
--- NOTE | 2025-04-05 14:44 | XRR_ITS ---
PROCEDURE INFORMATION: Exam: XR Abdomen Exam date and time: 04/05/2025 2:45 PM Age: 49 years old Clinical indication: Abdominal pain; Prior surgery; Surgery date: 6+ months; Surgery type: Cholecystectomy; Additional info: Abdomen pain; Nausea x 1 week TECHNIQUE: Imaging protocol: Radiologic exam of the abdomen. Views: Frontal supine view of the abdomen. 1 View. COMPARISON: CT angio chest w abd pel wo/w 04/05/2024 5:02 AM FINDINGS: Gastrointestinal tract: Bowel gas pattern nonobstructive. Intraperitoneal space: No evidence of free intraperitoneal air. Bones/joints: No significant focal osseous lesions. XR/XR abdomen 1V* [id number] IMPRESSION: No evidence of intestinal obstruction or perforation radiographically.
--- NOTE | 2025-04-05 14:47 | W.ED.NAVMDI ---
HPI - Nausea/Vomiting/Diarrhea General: Chief complaint: Nausea/Vomiting/Diarrhea Stated complaint: NVD / chills Time Seen by Provider: 04/05/25 14:38 History of Present Illness: 49-year-old man with hypertension, anxiety and depression he has been sick for 4 to 5 days now. He reports a very sore throat. Who presents emergency room with nausea and vomiting. He has some pain in his low chest area from vomiting. No focal pain in his abdomen but he does have sore muscles from vomiting as well. Related Data Home Medications ?Medication ?Instructions ?Recorded ?Confirmed buspirone 15 mg tablet 15 mg PO TID 08/07/22 02/01/25 clonazepam 0.5 mg tablet 0.5 mg PO TID 08/07/22 02/01/25 escitalopram oxalate 20 mg tablet 20 mg PO DAILY 04/03/24 02/01/25 (Lexapro) docusate sodium 100 mg capsule 100 mg PO BID PRN Constipation 05/04/24 02/01/25 (Colace) polyethylene glycol 3350 17 17 g PO DAILY PRN Constipation 05/04/24 02/01/25 gram/dose oral powder (Miralax) pantoprazole 40 mg tablet,delayed 40 mg PO QAM PRN acid reflux 07/20/24 02/01/25 release (Protonix) Previous Rx's ?Medication ?Instructions ?Recorded albuterol sulfate 90 mcg/actuation 2 inh inhalation Q6H PRN shortness 04/25/23 aerosol inhaler of breath or wheezing #6.7 grams syringe with needle 3 mL 23 x 1 #100 ea 09/25/24 (BD Luer-Vadim Syringe) lurasidone 80 mg tablet (Latuda) 80 mg PO QPM #20 tabs 01/22/25 levothyroxine 137 mcg tablet 137 mcg PO DAILY #90 tabs 01/26/25 amoxicillin 875 mg tablet 875 mg PO BID 7 days #14 tabs 02/01/25 testosterone cypionate 200 mg/mL 100 mg (0.5 mL) SUBCUT Q14D #10 mL 03/22/25 intramuscular oil Allergies Allergy/AdvReac Type Severity Reaction Status Date / Time No Known Allergies Allergy Verified 02/01/25 16:59 Review of Systems Narrative: Constitutional symptoms: Negative except as documented in HPI. Skin symptoms: Negative except as documented in HPI. Eye symptoms: Negative except as documented in HPI. ENMT symptoms: Negative except as documented in HPI. Respiratory symptoms: Negative except as documented in HPI. Cardiovascular symptoms: Negative except as documented in HPI. Gastrointestinal symptoms: Negative except as documented in HPI. Genitourinary symptoms: Negative except as documented in HPI. Musculoskeletal symptoms: Negative except as documented in HPI. Neurologic symptoms: Negative except as documented in HPI. Psychiatric symptoms: Negative except as documented in HPI. Endocrine symptoms: Negative except as documented in HPI. [facility] ED PFSH: Medical History (Updated 04/05/25 @ 17:47 by Sienna Hinojosa MD) Family history of colon cancer Generalized anxiety disorder Moderate major depression Anxiety Testosterone deficiency in male Hypothyroidism Migraine Surgical History History of laparoscopic cholecystectomy History of thyroidectomy, total History of sinus surgery Family History Grandmother Cancer Paternal-colon Grandfather Cancer Paternal-colon Other Dementia Diabetes Hypertension Lung disease Psychiatric illness Denies family history of CAD (coronary artery disease) Clotting disorder Hyperlipidemia Chronic kidney disease (CKD) Anesthesia complication Bleeding disorder Stroke Social History Smoking and tobacco/nicotine status: never used tobacco/nicotine Alcohol intake: current Alcohol intake frequency: few times a month Substance/Drug Use: never Lives independently: Yes Marital status: Number of children: 2 Current occupational status: employed 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 Skin: Warm, dry. Head: Normocephalic, atraumatic. Neck: Supple, trachea midline. Eye: Extraocular movements are intact. Ears, nose, mouth and throat: Very dry oral mucosa with beefy red oropharynx Cardiovascular: Regular, tachycardic, normal peripheral perfusion. Respiratory: Lungs are clear to auscultation, respirations are non-labored, breath sounds are equal, Symmetrical chest wall expansion. Gastrointestinal: Soft, Nontender, Non distended Musculoskeletal: Normal ROM, no deformity. Neurological: Alert and oriented, No focal neurological deficit observed. Psychiatric: Cooperative, appropriate mood & affect. But is Course Vital Signs: Vital signs: Vital Signs Temperature 99 F 04/05/25 16:43 Pulse Rate 102 H 04/05/25 16:43 Respiratory Rate 20 H 04/05/25 16:43 Blood Pressure 109/74 04/05/25 16:43 Pulse Oximetry 99 04/05/25 16:43 Oxygen Delivery Me thod Room Air 04/05/25 16:43 MDM - Nausea/Vomiting/Diarrhea Medical Decision Making Medical decision making Patient's reason for coming to the emergency room: Vomiting Social determinants: , employed, I reviewed the patient's medical record. patient has a history of hypertension anxiety and depression I reviewed the patient's current home meds Alternate historians: None Differential diagnosis for this patient with nausea and vomiting including but not limited to and based on the above HPI, review of systems and physical exam: Urinary tract infection. Appendicitis. Cholecystitis. Colitis. small bowel obstruction. Crohn's flare. pancreatitis. gastritis. peptic ulcer. cyclic vomiting. Viral illness. Influenza. COVID. And would have concern for resultant dehydration or renal failure. Orders placed to evaluate differential diagnosis based on the above differential, HPI and physical exam has lasted I was read the note the other day Chest x-ray: No acute process. No infiltrate. No pneumothorax. This was reviewed and interpreted by myself the emergency room physician. I also reviewed the radiology report. Lab Review: Laboratory results were reviewed and interpreted by myself the emergency room physician. Leukocytosis. Concentrated hemoglobin. Platelets are high. Some renal failure with a creatinine of 1.4. Omari Assessment of risk: Level of risk: Low risk patient Hospitalization considerations: being admitted. Reexamination: Patient continues to have dry heaves and vomiting. Consultation: I spoke with Dr. Subramanian who is on-call for the hospital service who agrees to admission Assessment and plan: COVID-19 Dehydration ?Omnicef given lactic acid and leukocytosis. 2 L normal saline bolus. Multiple doses of Zofran. Decadron. -I discussed the patient with the hospitalist on-call who is admitting the patient. - Discussed findings and plan with patient. Answered any questions. - All laboratory values were reviewed and interpreted personally by myself, the ER physician - All imaging was reviewed and interpreted personally by myself, the ER physician. - Evaluation and treatment of this problem were appropriate in the emergency setting Lab Data 04/05/25 15:09 04/05/25 15:09 Radiology Impressions Abdomen X-Ray 04/05/25 14:44 IMPRESSION: No evidence of intestinal obstruction or perforation radiographically. Laboratory Results WBC 18.02 10^3/uL (3.29-11.43) H 04/05/25 15:09 RBC 5.60 10^6/uL (3.85-5.65) 04/05/25 15:09 Hgb 17.10 g/dL (11.27-16.99) H 04/05/25 15:09 Hct 46.7 % (37-53) 04/05/25 15:09 MCV 83.4 fl (82-101) 04/05/25 15:09 MCH 30.5 pg (27-33) 04/05/25 15:09 MCHC 36.6 g/dL (30-55) 04/05/25 15:09 RDW 12.9 % (12.1-15.1) 04/05/25 15:09 Plt Count 774 10^3/cmm (157-399) H 04/05/25 15:09 MPV 9.2 fL (7.4-10.4) 04/05/25 15:09 Neut % (Auto) 81.4 % 04/05/25 15:09 Lymph % (Auto) 12.0 % 04/05/25 15:09 [place] % (Auto) 5.4 % 04/05/25 15:09 Eos % (Auto) 0.2 % 04/05/25 15:09 Baso % (Auto) 0.3 % 04/05/25 15:09 Neut # (Auto) 14.68 10^3/uL (1.8-7.7) H 04/05/25 15:09 Lymph # (Auto) 2.2 10^3/uL (0.8-4.8) 04/05/25 15:09 [place] # (Auto) 1.0 10^3/uL (0.2-0.9) H 04/05/25 15:09 Eos # (Auto) 0.0 10^3/uL (0.0-0.8) 04/05/25 15:09 Baso # (Auto) 0.1 10^3/uL (0.0-0.1) 04/05/25 15:09 Nucleated RBC % (auto) 0 % 04/05/25 15:09 Nucleated RBCs # 0.0 /100WBC 04/05/25 15:09 Sodium 137 mmol/L (136-145) 04/05/25 15:09 Potassium 3.5 mmol/L (3.5-5.1) 04/05/25 15:09 Chloride 97 mmol/L (98-107) L 04/05/25 15:09 Carbon Dioxide 19 mmol/L (22-29) L 04/05/25 15:09 Anion Gap 24.5 (5-19) H 04/05/25 15:09 BUN 14 mg/dL (6-20) 04/05/25 15:09 Creatinine 1.4 mg/dL (0.7-1.2) H 04/05/25 15:09 GFR Calculation 54.3 mL/min (90-130) L 04/05/25 15:09 Glucose 136 mg/dL (65-115) H 04/05/25 15:09 Calculated Osmolality 287 mOsm/kg (285-295) 04/05/25 15:09 Lactic Acid 3.3 mmol/L (0.5-2.2) H 04/05/25 15:46 Calcium 10.1 mg/dL (8.5-10.5) 04/05/25 15:09 Total Bilirubin 0.8 mg/dL (0.15-1.2) 04/05/25 15:09 AST 30 U/L (0-40) 04/05/25 15:09 ALT 39 U/L (0-41) 04/05/25 15:09 Alkaline Phosphatase 144 U/L (40-130) H 04/05/25 15:09 C-Reactive Protein 3.0 mg/L (0.0-4.9) 04/05/25 15:09 Total Protein 8.2 g/dL (6.6-8.7) 04/05/25 15:09 Albumin 4.8 g/dL (3.5-5.2) 04/05/25 15:09 Globulin 3.4 g/dL (1.3-4.6) 04/05/25 15:09 Procalcitonin 0.04 ng/mL (0-0.5) 04/05/25 15:09 Urine Color Dark yellow (Yellow) A 04/05/25 15:10 Urine Appearance Clear (CLEAR) 04/05/25 15:10 Urine pH 7.5 (5-7) 04/05/25 15:10 Ur Specific [place] 1.035 (1.005-1.030) H 04/05/25 15:10 Urine Protein 2+ (Negative) A 04/05/25 15:10 Urine Glucose (UA) Negative (Normal) 04/05/25 15:10 Urine Ketones 3+ (Negative) H 04/05/25 15:10 Urine Blood Negative (Negative) 04/05/25 15:10 Urine Nitrate Negative (Negative) 04/05/25 15:10 Urine Bilirubin 1+ (Negative) H 04/05/25 15:10 Urine Urobilinogen 1.0 mg/dL (Negative) 04/05/25 15:10 Ur Leukocyte Esterase Trace (Negative) A 04/05/25 15:10 Urine RBC 3-5 /hpf (0-2) 04/05/25 15:10 Urine WBC 0-5 /hpf (0-5) 04/05/25 15:10 Ur Squamous Epith Cells 0-5 /hpf (0-5) 04/05/25 15:10 Amorphous Sediment Not Reportable 04/05/25 15:10 Urine Bacteria None seen /hpf (NONE) 04/05/25 15:10 Hyaline Casts 26.88 /lpf 04/05/25 15:10 Urine Mucus 3+ /hpf 04/05/25 15:10 Influenza A (PCR) Negative (Negative) 04/05/25 15:08 Influenza Type B (PCR) Negative (Negative) 04/05/25 15:08 RSV (PCR) Negative (Negative) 04/05/25 15:08 SARS-CoV-2 (PCR) Positive (Negative) A 04/05/25 15:08 All radiology interpretation(s) finalized by discharge Discharge Plan Discharge Patient Disposition: Admitted As Inpatient Clinical Impression: COVID-19, Dehydration, Acute renal failure Condition: Stable Coding Level of Care Code ED [employer] Head for Ernesto Torres
[2025-04-05] MEDS: ondansetron 2 mg/ML SDV 2 mL 4 MG IVP (15:03)
[2025-04-05 15:30] LABS: Nucleated Red Blood Cells % 0 %
[2025-04-05 15:32] LABS: Hematocrit 46.7 % (37-53); Hemoglobin 17.10 g/dL (11.27-16.99); Mean Corpuscular HGB Conc 36.6 g/dL (30-55); Mean Corpuscular Hemoglobin 30.5 pg (27-33); Mean Corpuscular Volume 83.4 fl (82-101); Platelet Count 774 10^3/cmm (157-399); Red Blood Count 5.60 10^6/uL (3.85-5.65); White Blood Count 18.02 10^3/uL (3.29-11.43)
[2025-04-05 15:41] LABS: Alanine Aminotransferase 39 U/L (0-41); Albumin Level 4.8 g/dL (3.5-5.2); Alkaline Phosphatase 144 U/L (40-130); Aspartate Amino Transferase 30 U/L (0-40); Blood Urea Nitrogen 14 mg/dL (6-20); Calcium 10.1 mg/dL (8.5-10.5); Carbon Dioxide 19 mmol/L (22-29); Chloride 97 mmol/L (98-107); Globulin 3.4 g/dL (1.3-4.6); Glucose 136 mg/dL (65-115); Osmolality Calculated 287 mOsm/kg (285-295); Sodium 137 mmol/L (136-145); Total Protein 8.2 g/dL (6.6-8.7)
[2025-04-05 15:42] LABS: Anion Gap 24.5 (5-19); Potassium 3.5 mmol/L (3.5-5.1)
[2025-04-05 15:48] LABS: Procalcitonin 0.04 ng/mL (0-0.5)
[2025-04-05 15:53] LABS: Respiratory Syncytial Virus Ce NEGATIVE (Negative)
[2025-04-05 15:56] LABS: SARS-CoV-2 PCR Positive (Negative)
[2025-04-05 16:10] LABS: Lactic Sepsis W/Reflex 3.3 mmol/L (0.5-2.2)
[2025-04-05 16:13] LABS: Reflex Lactate Order REFLEX LACTIC ORDERD
[2025-04-05] MEDS: cefepime 2,000 mg SDV 2000 MG IVP (16:28)
[2025-04-05 16:43] VITALS: BP 109/74; PULSE 102; RESP 20; TEMP 37.2; O2SAT 99
[2025-04-05 16:49] LABS: Glucose Urine UA Negative (Normal); Nitrate Urine Negative (Negative)
[2025-04-05 17:15] LABS: Specific Gravity, Urine 1.035 (1.005-1.030)
[2025-04-05 17:16] LABS: UA Slide Review UA Slide Review Perf
[2025-04-05 18:55] LABS: Lactic Acid level (Lactate) 2.2 mmol/L (0.5-2.2)
--- NOTE | 2025-04-05 19:05 | P.HP_ITS ---
Providers/Chief Complaint 2 Admitting Physician: Naveen Subramanian MD Primary Care Provider: Taz Williamson MD Chief Complaint: NVD / chills History of Present Illness Mariya Jacobs is a 49 year old male with no past medical comorbidities other than depression and anxiety. Reports he has been sick, vomiting coughing for the past 5 days. 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 Patient takes clonazepam and buspirone for his anxiety, he recently started taking amoxicillin for what he thought was strep throat.On arrival to the ED, he was afebrile, had mildly elevated heart rate of 95-100. Mild tachypnea 2023 which resolved after IV fluids. Remarkable labs include leukocytosis of 18, reactive thrombocytosis platelets 774, and mildly elevated creatinine of 1.4 with baseline 1.1-1.2. Urinalysis unremarkable. COVID-positive. Patient is not hypoxic and is saturating 98% on room air. Medications/Allergies Home Medications ?Medication ?Instructions ?Recorded ?Confirmed ?Last Taken ?Type buspirone 15 mg tablet 15 mg PO TID 08/07/2205/07/24 History clonazepam 0.5 mg tablet 0.5 mg PO TID 08/07/2202/0105/07/24 History albuterol sulfate 90 mcg/actuation 2 inh inhalation Q6 H PRN shortness 04/25/23 02/01/25 Unknown Rx aerosol inhaler of breath or wheezing #6.7 g gricel escitalopram oxalate 20 mg tablet 20 mg PO DAILY 04/0302/01/25 05/07/24 History (Lexapro) docusate sodium 100 mg capsule 100 mg PO BID PRN Const ipation 05/04/24 02/01/25 05/04/24 History (Colace) polyethylene glycol 3350 17 17 g PO DAILY PRN Constipa tion 05/04/24 02/01/25 Unknown History gram/dose oral powder (Miralax) pantoprazole 40 mg tablet,delayed 40 mg PO QAM PRN aci d reflux 07/20/24 02/01/25 Unknown History release (Protonix) syringe with needle 3 mL 23 x 1 #100 ea 09/25/2403/13 Unknown Rx (BD Luer-Vadim Syringe) lurasidone 80 mg tablet (Latuda) 80 mg PO QPM #20 tabs 01/22/25 02/01/25 Unknown Rx levothyroxine 137 mcg tablet 137 mcg PO DAILY #90 tabs 01/26/25 02/01/25 Unknown Rx amoxicillin 875 mg tablet 875 mg PO BID 7 days #14 tab s 02/01/25 02/01/25 Unknown Rx testosterone cypionate 200 mg/mL 100 mg (0.5 mL) SUBCU T Q14D #10 mL 03/22/25 Unknown Rx intramuscular oil Allergies Allergy/AdvReac Type Severity Reaction Status Date / Time No Known Allergies Allergy Verified 02/01/25 16:59 PFSH Acute 2 PFSH: Medical History (Updated 04/05/25 @ 17:47 by Sienna Hinojosa MD) Family history of colon cancer Generalized anxiety disorder Moderate major depression Anxiety Testosterone deficiency in male Hypothyroidism Migraine Surgical History History of laparoscopic cholecystectomy History of thyroidectomy, total History of sinus surgery Family History Grandmother Cancer Paternal-colon Grandfather Cancer Paternal-colon Other Dementia Diabetes Hypertension Lung disease Psychiatric illness Denies family history of CAD (coronary artery disease) Clotting disorder Hyperlipidemia Chronic kidney disease (CKD) Anesthesia complication Bleeding disorder Stroke Social History Smoking and tobacco/nicotine status: never used tobacco/nicotine Alcohol intake: current Alcohol intake frequency: few times a month Substance/Drug Use: never Lives independently: Yes Marital status: Number of children: 2 Current occupational status: employed Current occupation: [employer] Special dianna needs: No Agree to transfusion: Yes Vitals/I&O/Wt Last Vital Signs Temp 99 F 04/05/25 16:43 Pulse 102 H 04/05/25 16:43 Resp 20 H 04/05/25 16:43 BP 109/74 04/05/25 16:43 Pulse Ox 99 04/05/25 16:43 O2 Del Method Room Air 04/05/25 16:43 04/05/25 04/05/25 04/05/25 06:59 14:59 22:59 Intake Total 1000 / 1000 Balance 1000 / 1000 Weight last 48 hrs Weight 79.832 kg Physical Exam 2 Narrative: General : Patient is well developed , no acute distress, oriented x3 Head : Normal cephalic, a-traumatic. Ears : Pinnae and external canal are normal. Hearing is normal. Eyes : PERRLA, Sclera and injection are normal. No conjunctival discharge. Nose : Mucous membranes are without erythema. Throat : buccal mucosa is normal, gums are without significant recession or hypertrophy. Lungs : Equal chest rise bilaterally, no use of accessory muscles, trachea is midline. Cor : Rate and rhythm are normal. Abdomen : Soft, ND, appropriately tender, no g/r/m Extremities : No edema, no cyanosis or clubbing, dorsalis pedis pulses are present bilaterally, non-tender to palpation of calves. Upper extremities are normal bilaterally. Back : non-tender to palpation, no CVA tenderness. Neuro : CN II - XII intact, Upper and lower extremities have equal and full strength Data 04/06/25 06:40 04/06/25 06:40 Micro: Microbiology 04/05/25 15:24 Blood Culture - Preliminary Blood SPECIMEN COLLECTED 04/05/25 15:24 Blood Culture - Preliminary Blood SPECIMEN COLLECTED A&P Assessment and plan 1. COVID-19: 2. Dehydration: Plan: Patient with no comorbidities, slight anxiety, persistent cough, mild tachypnea. COVID-19 positive URI. Major depressive disorder Generalized anxiety Patient is out the window for antivirals, he has been 4 to 5 days symptomatic anyway. This has mild post viral upper airway bronchoconstriction/bronchospasm. Supportive measures, IV fluids, isolation x 2 days, respiratory support with oxygen if needed, DuoNebs. Will hold off on steroid. Check labs in a.m., replace electrolytes as needed. DVT prophylaxis with Lovenox GI prophylaxis with pantoprazole. PDMP PDMP Reviewed: Not Reviewed Attestations 2 Medical Necessity Statement*: Patient has mild upper respiratory symptoms, post COVID bronchospasm. Continue supportive measures, anticipate discharge tomorrow, placed in observation. Diagnoses COVID-19 U07.1 Dehydration E86.0
[2025-04-05] MEDS: morphine 4 mg/mL SDV 1 mL 2 MG IVP (20:59)
[2025-04-05 21:00] VITALS: BP 123/72; PULSE 97; O2SAT 100
--- NOTE | 2025-04-05 21:13 | PC.NURSE ---
report given to Kaitlyn MARIANO
--- NOTE | 2025-04-05 21:23 | PC.NURSE ---
Took over pt care from Jodee SOTELO at 2109.
[2025-04-05 21:25] VITALS: BP 123/72; PULSE 96; RESP 20; O2SAT 100
[2025-04-05 23:44] VITALS: BP 126/78; PULSE 97; RESP 20; O2SAT 100
[2025-04-06] VITALS (12 sets, daily range): BP systolic 102–123; BP diastolic 62–79; PULSE 83–95; RESP 16–20; TEMP 36.5–36.8; O2SAT 96–99; BMI 24.7
[2025-04-06 07:13] LABS: Hematocrit 37.1 % (37-53); Hemoglobin 13.30 g/dL (11.27-16.99); Mean Corpuscular HGB Conc 35.8 g/dL (30-55); Mean Corpuscular Hemoglobin 30.4 pg (27-33); Mean Corpuscular Volume 84.7 fl (82-101); Nucleated Red Blood Cells % 0 %; Platelet Count 592 10^3/cmm (157-399); Red Blood Count 4.38 10^6/uL (3.85-5.65); White Blood Count 19.39 10^3/uL (3.29-11.43)
[2025-04-06 07:26] LABS: Alanine Aminotransferase 43 U/L (0-41); Albumin Level 4.0 g/dL (3.5-5.2); Alkaline Phosphatase 119 U/L (40-130); Anion Gap 21.4 (5-19); Aspartate Amino Transferase 66 U/L (0-40); Blood Urea Nitrogen 12 mg/dL (6-20); Calcium 8.5 mg/dL (8.5-10.5); Carbon Dioxide 15 mmol/L (22-29); Chloride 105 mmol/L (98-107); Globulin 2.5 g/dL (1.3-4.6); Glucose 117 mg/dL (65-115); Magnesium 1.7 mg/dL (1.7-2.3); Osmolality Calculated 287 mOsm/kg (285-295); Potassium 3.4 mmol/L (3.5-5.1); Sodium 138 mmol/L (136-145); Total Protein 6.5 g/dL (6.6-8.7)
--- NOTE | 2025-04-06 23:22 | P.PN_ITS ---
Subjective 2 Subjective: Saw patient at bedside today, he states he is feeling better. No cough. Slightly diaphoretic. Vitals/I&O/Wt Last Vital Signs Temp 98.2 F 04/06/25 20:00 Pulse 83 04/06/25 20:00 Resp 18 04/06/25 20:00 BP 103/64 04/06/25 20:00 Pulse Ox 98 04/06/25 20:00 O2 Del Method Room Air 04/06/25 15:44 04/06/25 04/06/25 04/07/25 14:59 22:59 06:59 Intake Total 960 / 960 Balance 960 / 960 Weight last 48 hrs Weight 71.758 kg Weight 79.832 kg Physical Exam 2 Narrative: General : Patient is well developed , no acute distress, oriented x3 Head : Normal cephalic, a-traumatic. Ears : Pinnae and external canal are normal. Hearing is normal. Eyes : PERRLA, Sclera and injection are normal. No conjunctival discharge. Nose : Mucous membranes are without erythema. Throat : buccal mucosa is normal, gums are without significant recession or hypertrophy. Lungs : Equal chest rise bilaterally, no use of accessory muscles, trachea is midline. Cor : Rate and rhythm are normal. Abdomen : Soft, ND, appropriately tender, no g/r/m Extremities : No edema, no cyanosis or clubbing, dorsalis pedis pulses are present bilaterally, non-tender to palpation of calves. Upper extremities are normal bilaterally. Back : non-tender to palpation, no CVA tenderness. Neuro : CN II - XII intact, Upper and lower extremities have equal and full strength Data 04/06/25 06:40 04/06/25 06:40 Micro: Microbiology 04/05/25 15:24 Blood Culture - Preliminary Blood NEGATIVE TO DATE 04/05/25 15:24 Blood Culture - Preliminary Blood NEGATIVE TO DATE A&P Assessment and plan 1. COVID-19: 2. Dehydration: Plan: Patient with no comorbidities, slight anxiety, persistent cough, mild tachypnea. COVID-19 positive URI. Major depressive disorder Generalized anxiety Patient is out the window for antivirals, he has been 4 to 5 days symptomatic anyway. This has mild post viral upper airway bronchoconstriction/bronchospasm. Supportive measures, IV fluids, isolation x 2 days, respiratory support with oxygen if needed, DuoNebs. Will continue to hold off on steroid. Check labs in a.m., replace electrolytes as needed. DVT prophylaxis with Lovenox GI prophylaxis with pantoprazole. PDMP PDMP Reviewed: Not Reviewed Attestations 2 Medical Necessity Statement*: Patient has mild upper respiratory symptoms, post COVID bronchospasm. Continue supportive measures, anticipate discharge tomorrow, placed in observation. Coding Level of Care Code 08127 Diagnoses COVID-19 U07.1 Dehydration E86.0
[2025-04-07 04:00] VITALS: BP 117/65; PULSE 68; RESP 18; TEMP 36.8; O2SAT 98
[2025-04-07 07:30] VITALS: BP 111/66; PULSE 74; RESP 16; TEMP 36.7; O2SAT 98
[2025-04-07 11:36] VITALS: BP 98/61; PULSE 69; RESP 16; TEMP 36.6; O2SAT 97
--- NOTE | 2025-04-07 15:52 | PM.DCS ---
Discharge Providers Date of Admission: 04/06/25 18:00 Date of Discharge: April 07, 2025 Attending Provider at Admission: Naveen Subramanian MD Attending Provider at Discharge: Naveen Subramanian MD Primary Care Provider: Taz Williamson MD Diagnoses at Discharge Discharge Diagnosis 1. COVID-19: 2. Dehydration: Reason for Visit Reason for Visit: NVD / chills Brief History: Mariya Jacobs is a 49 year old male with no past medical comorbidities other than depression and anxiety. Reports he has been sick, vomiting coughing for the past 5 days. 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 Patient takes clonazepam and buspirone for his anxiety, he recently started taking amoxicillin for what he thought was strep throat.On arrival to the ED, he was afebrile, had mildly elevated heart rate of 95-100. Mild tachypnea 2023 which resolved after IV fluids. Remarkable labs include leukocytosis of 18, reactive thrombocytosis platelets 774, and mildly elevated creatinine of 1.4 with baseline 1.1-1.2. Urinalysis unremarkable. COVID-positive. Patient is not hypoxic and is saturating 98% on room air. Hospital Course Hospital Course Patient received supportive care during his hospital stay, and he was discharged home in stable condition, no new meds. Physical Exam Narrative: General : Patient is well developed , no acute distress, oriented x3 Head : Normal cephalic, a-traumatic. Ears : Pinnae and external canal are normal. Hearing is normal. Eyes : PERRLA, Sclera and injection are normal. No conjunctival discharge. Nose : Mucous membranes are without erythema. Throat : buccal mucosa is normal, gums are without significant recession or hypertrophy. Lungs : Equal chest rise bilaterally, no use of accessory muscles, trachea is midline. Cor : Rate and rhythm are normal. Abdomen : Soft, ND, appropriately tender, no g/r/m Extremities : No edema, no cyanosis or clubbing, dorsalis pedis pulses are present bilaterally, non-tender to palpation of calves. Upper extremities are normal bilaterally. Back : non-tender to palpation, no CVA tenderness. Neuro : CN II - XII intact, Upper and lower extremities have equal and full strength Discharge Data Studies Completed and Pending Completed Studies During Hospitalization Category Date Time Status XR abdomen 1V* [id number] Stat Exams 04/05/25 14:44 Completed Pending at discharge Category Date Time Status Blood Culture Stat Lab 04/05/25 15:24 Results Radiology Impressions Abdomen X-Ray 04/05/25 14:44 IMPRESSION: No evidence of intestinal obstruction or perforation radiographically. Laboratory Results WBC 19.39 10^3/uL (3.29-11.43) H 04/06/25 06:40 RBC 4.38 10^6/uL (3.85-5.65) 04/06/25 06:40 Hgb 13.30 g/dL (11.27-16.99) 04/06/25 06:40 Hct 37.1 % (37-53) 04/06/25 06:40 MCV 84.7 fl (82-101) 04/06/25 06:40 MCH 30.4 pg (27-33) 04/06/25 06:40 MCHC 35.8 g/dL (30-55) 04/06/25 06:40 RDW 13.3 % (12.1-15.1) 04/06/25 06:40 Plt Count 592 10^3/cmm (157-399) H 04/06/25 06:40 MPV 9.0 fL (7.4-10.4) 04/06/25 06:40 Neut % (Auto) 80.5 % 04/06/25 06:40 Lymph % (Auto) 10.9 % 04/06/25 06:40 [place] % (Auto) 6.6 % 04/06/25 06:40 Eos % (Auto) 0.0 % 04/06/25 06:40 Baso % (Auto) 0.1 % 04/06/25 06:40 Neut # (Auto) 15.61 10^3/uL (1.8-7.7) H 04/06/25 06:40 Lymph # (Auto) 2.1 10^3/uL (0.8-4.8) 04/06/25 06:40 [place] # (Auto) 1.3 10^3/uL (0.2-0.9) H 04/06/25 06:40 Eos # (Auto) 0.0 10^3/uL (0.0-0.8) 04/06/25 06:40 Baso # (Auto) 0.0 10^3/uL (0.0-0.1) 04/06/25 06:40 Nucleated RBC % (auto) 0 % 04/06/25 06:40 Nucleated RBCs # 0.0 /100WBC 04/06/25 06:40 Sodium 138 mmol/L (136-145) 04/06/25 06:40 Potassium 3.4 mmol/L (3.5-5.1) L 04/06/25 06:40 Chloride 105 mmol/L (98-107) 04/06/25 06:40 Carbon Dioxide 15 mmol/L (22-29) L 04/06/25 06:40 Anion Gap 21.4 (5-19) H 04/06/25 06:40 BUN 12 mg/dL (6-20) 04/06/25 06:40 Creatinine 1.1 mg/dL (0.7-1.2) 04/06/25 06:40 GFR Calculation 71.8 mL/min (90-130) L 04/06/25 06:40 Glucose 117 mg/dL (65-115) H 04/06/25 06:40 Calculated Osmolality 287 mOsm/kg (285-295) 04/06/25 06:40 Lactic Acid 3.3 mmol/L (0.5-2.2) H 04/05/25 15:46 Lactic Acid (Sepsis) 2.2 mmol/L (0.5-2.2) 04/05/25 18:29 Calcium 8.5 mg/dL (8.5-10.5) 04/06/25 06:40 Phosphorus 0.8 mg/dL (2.5-4.5) L* 04/06/25 06:40 Magnesium 1.7 mg/dL (1.7-2.3) 04/06/25 06:40 Total Bilirubin 0.8 mg/dL (0.15-1.2) 04/06/25 06:40 AST 66 U/L (0-40) H 04/06/25 06:40 ALT 43 U/L (0-41) H 04/06/25 06:40 Alkaline Phosphatase 119 U/L (40-130) 04/06/25 06:40 C-Reactive Protein 3.0 mg/L (0.0-4.9) 04/05/25 15:09 Total Protein 6.5 g/dL (6.6-8.7) L D 04/06/25 06:40 Albumin 4.0 g/dL (3.5-5.2) 04/06/25 06:40 Globulin 2.5 g/dL (1.3-4.6) 04/06/25 06:40 Procalcitonin 0.04 ng/mL (0-0.5) 04/05/25 15:09 Urine Color Dark yellow (Yellow) A 04/05/25 15:10 Urine Appearance Clear (CLEAR) 04/05/25 15:10 Urine pH 7.5 (5-7) 04/05/25 15:10 Ur Specific [place] 1.035 (1.005-1.030) H 04/05/25 15:10 Urine Protein 2+ (Negative) A 04/05/25 15:10 Urine Glucose (UA) Negative (Normal) 04/05/25 15:10 Urine Ketones 3+ (Negative) H 04/05/25 15:10 Urine Blood Negative (Negative) 04/05/25 15:10 Urine Nitrate Negative (Negative) 04/05/25 15:10 Urine Bilirubin 1+ (Negative) H 04/05/25 15:10 Urine Urobilinogen 1.0 mg/dL (Negative) 04/05/25 15:10 Ur Leukocyte Esterase Trace (Negative) A 04/05/25 15:10 Urine RBC 3-5 /hpf (0-2) 04/05/25 15:10 Urine WBC 0-5 /hpf (0-5) 04/05/25 15:10 Ur Squamous Epith Cells 0-5 /hpf (0-5) 04/05/25 15:10 Amorphous Sediment Not Reportable 04/05/25 15:10 Urine Bacteria None seen /hpf (NONE) 04/05/25 15:10 Hyaline Casts 26.88 /lpf 04/05/25 15:10 Urine Mucus 3+ /hpf 04/05/25 15:10 Influenza A (PCR) Negative (Negative) 04/05/25 15:08 Influenza Type B (PCR) Negative (Negative) 04/05/25 15:08 RSV (PCR) Negative (Negative) 04/05/25 15:08 SARS-CoV-2 (PCR) Positive (Negative) A 04/05/25 15:08 Vitals Last Vital Signs Temp 97.8 F 04/07/25 11:36 Pulse 69 04/07/25 11:36 Resp 16 04/07/25 11:36 BP 98/61 04/07/25 11:36 Pulse Ox 97 04/07/25 11:36 O2 Del Method Room Air 04/07/25 11:36 Discharge Plan Discharge Patient Disposition: Home Condition: Stable Prescriptions: Continued clonazepam 0.5 mg tablet 0.5 mg PO TID buspirone 15 mg tablet 15 mg PO TID pantoprazole [Protonix] 40 mg tablet,delayed release (DR/EC) 40 mg PO QAM PRN (Reason: acid reflux) (DME) BD Luer-Vadim Syringe 3 mL 23 x 1 syringe See Rx Instructions .ROUTE .COMPLEX Qty: 100 3RF Dose Instruction: USE DIRECTED FOR TESTOSTERONE INJECTION Rx Instructions: USE DIRECTED FOR TESTOSTERONE INJECTION lurasidone [Latuda] 80 mg tablet 80 mg PO QPM Qty: 20 0RF levothyroxine 137 mcg tablet 137 mcg PO DAILY Qty: 90 1RF testosterone cypionate 200 mg/mL oil 100 mg SUBCUT Q14D Qty: 10 2RF escitalopram oxalate [Lexapro] 20 mg tablet 20 mg PO DAILY docusate sodium [Colace] 100 mg capsule 100 mg PO BID PRN (Reason: Constipation) Discharge Order = DC NOW: Discharge Order (Routine); Ordered 04/07/25 Ordered By: Naveen Subramanian Referrals: Taz Williamson MD [Primary Care Provider, [facility]] Referral Note: We have notified your physician's clinic of the need for a follow-up appointment to be scheduled. If you have not heard from them within the next 2 business days, please call them directly. Patient Instructions: Opioid Safety, Patient Portal & [place] Instructions Discharge Attestations Time Spent in Discharge Care*: greater than 30 min Quality Metrics Clinical Quality Measures [ No reported AMI, CVA or VTE this stay] Coding Level of Care Code 55487 Diagnoses COVID-19 U07.1 Dehydration E86.0
[2025-04-07 16:19] VITALS: BP 98/61; PULSE 69; RESP 16; TEMP 36.6; O2SAT 97
--- NOTE | 2025-04-07 16:20 | PC.NURSE ---
Discharge Note Patient discharged to home via private vehicle accompanied by friend. Discharge instructions reviewed with patient and/or agency sales representative. Mobile pharmacy medications and/or prescriptions provided. Belongings/home medications returned.
[2025-04-07 16:30] VITALS: BP 110/69; PULSE 70; RESP 17; TEMP 36.4; O2SAT 98
== END 2025-04-07 16:47 | disposition home or self-care (01) ==
LOC: ER 17:47 → ER IP 17:52 → MEDSURG 04-06 08:02
PROVIDERS: Admitting Provider Internal Medicine; Emergency Provider Emergency Medicine; PCP Family Medicine; Visit Provider Internal Medicine
DX: U07.1 COVID-19 (principal); E86.0 Dehydration; K21.9 Gastro-esophageal reflux disease without esophagitis; E03.9 Hypothyroidism, unspecified; F41.9 Anxiety disorder, unspecified; F32.9 Major depressive disorder, single episode, unspecified; Z80.0 Family history of malignant neoplasm of digestive organs
CPT/HCPCS: 36415; 74018; 80053; 81001; 83605; 83735; 84100; 84145; 85025; 86140; 87040; 87637; 94664; 96372; 96374; 96375; 99285; G0378; J0692; J1100; J1650; J2270; J2405; J7030; J9999; Q0162